=== PATIENT | female | born 1935 | race Caucasian/White ===

== ENCOUNTER 2022-12-08 11:16 | Observation (INO) | payer OTHER ==
--- OUTSIDE RECORDS SUMMARY | 2022-12-08 11:19 | XMS REPORT | Continuity of Care Document ---
:1935 Author Organization [facility] t Address [address] [place] [address] Care Team Providers Name Role Phone MIKHAIL Attending Clinician Unavailable oRbert Cerrato Attending Clinician [phone] JUSTIN DELEON Attending Clinician Unavailable Justin Brunson Attending Clinician MIKHAIL Admitting Clinician Unavailable Payers Payer Name Policy Type Policy Number Effective Date Expiration Date S anne-marie [facility] [id number] (MEDICARE REPLACEMENT/[place] GE - PPO) [facility] [id number] 2021 [facility] 00:00:00 PPO Problems Condition Condition Condition Status Onset Resolution Last Treating Co mments Source Name Details Category Date Date Treatment Clinician Date Acute Acute Problem Active Fellows bronchitis Bronchitis 03-14 Co mmuni 00:00: [facility] Impairment Impairment Problem Active 2020-11 S weeny of balance of Balance 11-20 Co mmuni 00:00: [facility] At risk At Risk Problem Active 2020-11 Fellows for falls for Falls 11-20 Comm uni 00:: [facility] Hypothyroi Hypothyroi Problem Active 2019- S weeny dism dism - Communi 00:: [facility] Hypertensi Hypertensi Problem Active 2019-0 S weeny ve ve -17 Communi disorder Disorder 00:00: [facility] Asthma Asthma Problem Active 2019- Fellows -17 Communi 00:00: [facility] 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 -17 Commun i 00:00: [facility] No known No known Disease Unive rs active active ity of problems problems [facility] Allergies, Adverse Reactions, Alerts Allergy Allergy Status Severity Reaction(s) Onset Inactive Treating Comm ents Source Name Type Date Date Clinician NO KNOWN Drug Active Univers ALLERGIE Class [facility] Melatoni Allergy Active Confusion Swe[facility] Social History Social Habit Start Date Stop Date Quantity Comments Source Exposure to Not sure [facility] SARS-CoV-2 (event) Medica l Branch Tobacco use and 2021-03-09 2021-03-09 Never used [facility] exposure 00:00:00 00:00:00 Medical Branch Sex Ass[birth year] At [birth year] [facility] 00:00:00 00:00:00 Medical Branch Smoking Status Start Date Stop Date Source Never smoker [facility] Medications Ordered Filled Start Stop Current Ordering Indication Dosage Frequency Signature Comments Components Source Medication Medication Date Date Medication? Clinician (SIG) Name Name methylPREDN 2019-0 Yes [id number] [phone] mouth ity of (MEDROL, 00:00: SEE-INSTRU Hany as HU,) 4 mg 00 CTIONS. Medica l tablets follow Branch package directions methylPREDN 2019-0 Yes [id number] [phone] mouth ity of (MEDROL, 00:00: SEE-INSTRU Hany as HU,) 4 mg 00 CTIONS. Medica l tablets follow Branch package directions methylPREDN 2019-0 Yes [id number] [phone] mouth ity of (MEDROL, 00:00: SEE-INSTRU Hany as HU,) 4 mg 00 CTIONS. Medica l tablets follow Branch package directions methylPREDN 2017-0 Yes 84mg Take 21 Uni vers ISolone 7-27 tablets by ity of (MEDROL, 00:00: mouth [place] HU,) 4 mg 00 SEE-INSTRU Med ical tablets CTIONS. Branch follow package directions methylPREDN 2017-0 Yes 84mg Take 21 Uni vers ISolone 7-27 tablets by ity of (MEDROL, 00:00: mouth [place] HU,) 4 mg 00 SEE-INSTRU Med ical tablets CTIONS. Branch follow package directions methylPREDN 2017-0 Yes 84mg Take 21 Uni vers ISolone 7-27 tablets by ity of (MEDROL, 00:00: mouth [place] HU,) 4 mg 00 SEE-INSTRU Med ical tablets CTIONS. Branch follow package directions gabapentin Yes TAKE ONE Uni vers 300 mg 6-27 CAPSULE BY ity of capsule 00:00: MOUTH AT [place] [address] BEDTIME Medical Branch montelukast Yes TAKE 1 Univ ers 10 mg 6-27 TABLET BY ity of tablet 00:00: MOUTH AT [place] [address] BEDTIME Medical WITH A Branch FULL GLASS OF WATER benzonatate Yes TAKE ONE Un jefferson 100 mg 6-27 CAPSULE BY ity of capsule 00:00: MOUTH [place] [address] EVERY 6 Medical HOURS AND Branch 2 CAPSULES BY MOUTH AT BEDTIME NEEDED FOR COUGH gabapentin Yes TAKE ONE Uni vers 300 mg 6-27 CAPSULE BY ity of capsule 00:00: MOUTH AT [place] [address] BEDTIME Medical Branch montelukast Yes TAKE 1 Univ ers 10 mg 6-27 TABLET BY ity of tablet 00:00: MOUTH AT [place] [address] BEDTIME Medical WITH A Branch FULL GLASS OF WATER benzonatate Yes TAKE ONE Un jefferson 100 mg 6-27 CAPSULE BY ity of capsule 00:00: MOUTH [place] [address] EVERY 6 Medical HOURS AND Branch 2 CAPSULES BY MOUTH AT BEDTIME NEEDED FOR COUGH gabapentin Yes TAKE ONE Uni vers 300 mg 6-27 CAPSULE BY ity of capsule 00:00: [facility] AT [place] [address] [facility] montelukast Yes TAKE 1 Univ ers 10 mg 6-27 TABLET BY ity of tablet 00:00: MOUTH AT [place] [address] BEDTIME Medical WITH A Branch FULL GLASS OF WATER benzonatate Yes TAKE ONE Un jefferson 100 mg 6-27 CAPSULE BY ity of capsule 00:00: MOUTH [place] [address] EVERY 6 Medical HOURS AND Branch 2 CAPSULES BY MOUTH AT BEDTIME NEEDED FOR COUGH amlodipine- Yes TAKE 1 Univ ers benazepril 5-26 TABLET BY ity of 10-20 mg 00:00: MOUTH ONCE Hany as per capsule 00 DAILY Medical Branch amlodipine- Yes TAKE 1 Univ ers benazepril 5-26 TABLET BY ity of 10-20 mg 00:00: MOUTH ONCE Hany as per capsule 00 DAILY Medical Branch amlodipine- Yes TAKE 1 Univ ers benazepril 5-26 TABLET BY ity of 10-20 mg 00:00: MOUTH ONCE Hany as per capsule 00 DAILY Medical Branch amlodipine amlodipine No amlodipine Fellows 10 10 10 Communi mg-benazepr mg-benazepr mg-benazep ty il 20 mg il 20 mg ril 20 mg Ho spita capsule capsule capsule l TAKE 1 TAKE 1 TAKE 1 Clinics CAPSULE BY CAPSULE BY CAPSULE BY MOUTH EVERY MOUTH EVERY MOUTH DAY DAY EVERY DAY azithromyci azithromyci No azithromyc Fellows n 250 mg n 250 mg in 250 mg Co mmuni tablet TAKE tablet TAKE tablet ty 2 TABLETS 2 TABLETS TAKE 2 [facility] (500 MG) BY (500 MG) BY TABLETS l ORAL ROUTE ORAL ROUTE (500 MG) Clinics ONCE DAILY ONCE DAILY BY ORAL FOR 1 DAY FOR 1 DAY ROUTE ONCE THEN 1 THEN 1 DAILY FOR TABLET (250 TABLET (250 1 DAY THEN MG) BY ORAL MG) BY ORAL 1 TABLET ROUTE ONCE ROUTE ONCE (250 MG) DAILY FOR 4 DAILY FOR 4 BY ORAL DAYS DAYS ROUTE ONCE DAILY FOR 4 DAYS dexamethaso dexamethaso No 10mg dexamethas Fellows ne sodium ne sodium one sodium Communi phosphate phosphate phosphate ty 10 mg/mL 10 mg/mL 10 mg/mL [facility] injection injection injection l solution solution solution Cli nics Take 10 mg Take 10 mg Take 10 mg by by by injection injection injection route. route. route. Guaiatussin Guaiatussin No Guaiatussi [facility]s AC 10 AC 10 n AC 10 Communi mg-100 mg/5 mg-100 mg/5 mg-100 ty mL oral mL oral mg/5 mL Hospit a liquid TAKE liquid TAKE oral l 10 ML EVERY 10 ML EVERY liquid Clinics 4-6 HOURS 4-6 HOURS TAKE 10 ML BY ORAL BY ORAL EVERY 4-6 ROUTE. ROUTE. HOURS BY ORAL ROUTE. Kenalog 40 Kenalog 40 No 40mg Kenalog 40 Fellows mg/mL mg/mL mg/mL Communi suspension suspension suspension ty for for for Hospita injection injection injection l Take 40 mg Take 40 mg Take 40 mg Clinics by by by injection injection injection route. route. route. montelukast montelukast No montelukas [facility] 10 mg 10 mg t 10 mg Communi tablet TAKE tablet TAKE tablet ty 1 TABLET BY 1 TABLET BY TAKE 1 Hospita MOUTH EVERY MOUTH EVERY TABLET BY l DAY DAY MOUTH Clinics EVERY DAY amlodipine amlodipine No amlodipine Fellows 10 10 10 Communi mg-benazepr mg-benazepr mg-benazep ty il 20 mg il 20 mg ril 20 mg Ho spita capsule capsule capsule l TAKE 1 TAKE 1 TAKE 1 Clinics CAPSULE BY CAPSULE BY CAPSULE BY MOUTH EVERY MOUTH EVERY MOUTH DAY DAY EVERY DAY azithromyci azithromyci No azithromyc Fellows n 250 mg n 250 mg in 250 mg Co mmuni tablet TAKE tablet TAKE tablet ty 2 TABLETS 2 TABLETS TAKE 2 [facility] (500 MG) BY (500 MG) BY TABLETS l ORAL ROUTE ORAL ROUTE (500 MG) Clinics ONCE DAILY ONCE DAILY BY ORAL FOR 1 DAY FOR 1 DAY ROUTE ONCE THEN 1 THEN 1 DAILY FOR TABLET (250 TABLET (250 1 DAY THEN MG) BY ORAL MG) BY ORAL 1 TABLET ROUTE ONCE ROUTE ONCE (250 MG) DAILY FOR 4 DAILY FOR 4 BY ORAL DAYS DAYS ROUTE ONCE DAILY FOR 4 DAYS dexamethaso dexamethaso No 10mg dexamethas [facility] ne sodium ne sodium one sodium Communi phosphate phosphate phosphate ty 10 mg/mL 10 mg/mL 10 mg/mL [facility] injection injection injection l solution solution solution Cli nics Take 10 mg Take 10 mg Take 10 mg by by by injection injection injection route. route. route. Guaiatussin Guaiatussin No Guaiatussi [facility] AC 10 AC 10 n AC 10 Communi mg-100 mg/5 mg-100 mg/5 mg-100 ty mL oral mL oral mg/5 mL Hospit a liquid TAKE liquid TAKE oral l 10 ML EVERY 10 ML EVERY liquid Clinics 4-6 HOURS 4-6 HOURS TAKE 10 ML BY ORAL BY ORAL EVERY 4-6 ROUTE. ROUTE. HOURS BY ORAL ROUTE. Kenalog 40 Kenalog 40 No 40mg Kenalog 40 Fellows mg/mL mg/mL mg/mL Communi suspension suspension suspension ty for for for Hospita injection injection injection l Take 40 mg Take 40 mg Take 40 mg Clinics by by by injection injection injection route. route. route. montelukast montelukast No montelukas [facility] 10 mg 10 mg t 10 mg Communi tablet TAKE tablet TAKE tablet ty 1 TABLET BY 1 TABLET BY TAKE 1 Hospita MOUTH EVERY MOUTH EVERY TABLET BY l DAY DAY MOUTH Clinics EVERY DAY amlodipine amlodipine No amlodipine [facility] 10 10 10 Communi mg-benazepr mg-benazepr mg-benazep ty il 20 mg il 20 mg ril 20 mg Ho spita capsule capsule capsule l TAKE 1 TAKE 1 TAKE 1 Clinics CAPSULE BY CAPSULE BY CAPSULE BY MOUTH EVERY MOUTH EVERY MOUTH DAY DAY EVERY DAY azithromyci azithromyci No azithromyc [facility] n 250 mg n 250 mg in 250 mg Co m[facility]i tablet TAKE tablet TAKE tablet ty 2 TABLETS 2 TABLETS TAKE 2 [facility] (500 MG) BY (500 MG) BY TABLETS l ORAL ROUTE ORAL ROUTE (500 MG) Clinics ONCE DAILY ONCE DAILY BY ORAL FOR 1 DAY FOR 1 DAY ROUTE ONCE THEN 1 THEN 1 DAILY FOR TABLET (250 TABLET (250 1 DAY THEN MG) BY ORAL MG) BY ORAL 1 TABLET ROUTE ONCE ROUTE ONCE (250 MG) DAILY FOR 4 DAILY FOR 4 BY ORAL DAYS DAYS ROUTE ONCE DAILY FOR 4 DAYS dexamethaso dexamethaso No 10mg dexamethas [facility] ne sodium ne sodium one sodium Communi phosphate phosphate phosphate ty 10 mg/mL 10 mg/mL 10 mg/mL [facility] injection injection injection l solution solution solution Cli nics Take 10 mg Take 10 mg Take 10 mg by by by injection injection injection route. route. route. Guaiatussin Guaiatussin No Guaiatussi [facility] AC 10 AC 10 n AC 10 Communi mg-100 mg/5 mg-100 mg/5 mg-100 ty mL oral mL oral mg/5 mL Hospit a liquid TAKE liquid TAKE oral l 10 ML EVERY 10 ML EVERY liquid Clinics 4-6 HOURS 4-6 HOURS TAKE 10 ML BY ORAL BY ORAL EVERY 4-6 ROUTE. ROUTE. HOURS BY ORAL ROUTE. Kenalog 40 Kenalog 40 No 40mg Kenalog 40 Fellows mg/mL mg/mL mg/mL Communi suspension suspension suspension ty for for for Hospita injection injection injection l Take 40 mg Take 40 mg Take 40 mg Clinics by by by injection injection injection route. route. route. montelukast montelukast No montelukas [facility] 10 mg 10 mg t 10 mg Communi tablet TAKE tablet TAKE tablet ty 1 TABLET BY 1 TABLET BY TAKE 1 Hospita MOUTH EVERY MOUTH EVERY TABLET BY l DAY DAY MOUTH Clinics EVERY DAY amlodipine amlodipine No amlodipine [facility] 10 10 10 Communi mg-benazepr mg-benazepr mg-benazep ty il 20 mg il 20 mg ril 20 mg [facility] spita capsule capsule capsule l TAKE 1 TAKE 1 TAKE 1 Clinics CAPSULE BY CAPSULE BY CAPSULE BY MOUTH EVERY MOUTH EVERY MOUTH DAY DAY EVERY DAY levothyroxi levothyroxi No levothyrox [facility] ne 50 mcg ne 50 mcg ine 50 mcg Communi tablet TAKE tablet TAKE tablet ty 1 TABLET BY 1 TABLET BY TAKE 1 Hospita MOUTH EVERY MOUTH EVERY TABLET BY l DAY. STOP DAY. STOP MOUTH Clin ics 25 MCG DOSE 25 MCG DOSE EVERY DAY. STOP 25 MCG DOSE montelukast montelukast No montelukas [facility] 10 mg 10 mg t 10 mg Communi tablet TAKE tablet TAKE tablet ty 1 TABLET BY 1 TABLET BY TAKE 1 Hospita MOUTH EVERY MOUTH EVERY TABLET BY l DAY DAY MOUTH Clinics EVERY DAY sertraline sertraline No 1 Q1D sertraline [facility] 25 mg 25 mg 25 mg Communi tablet Take tablet Take tablet ty 1 tablet 1 tablet Take 1 Hospi ta every day every day tablet l by oral by oral every day Clin ics route. route. by oral route. amlodipine amlodipine No amlodipine [facility] 10 10 10 Communi mg-benazepr mg-benazepr mg-benazep ty il 20 mg il 20 mg ril 20 mg Ho spita capsule capsule capsule l TAKE 1 TAKE 1 TAKE 1 Clinics CAPSULE BY CAPSULE BY CAPSULE BY MOUTH EVERY MOUTH EVERY MOUTH DAY DAY EVERY DAY levothyroxi levothyroxi No levothyrox [facility] ne 25 mcg ne 25 mcg ine 25 mcg Communi tablet Take tablet Take tablet ty 1 tablet 1 tablet Take 1 Hospi ta daily by daily by tablet l mouth mouth daily by Clinics mouth montelukast montelukast No montelukas [facility] 10 mg 10 mg t 10 mg Communi tablet TAKE tablet TAKE tablet ty 1 TABLET BY 1 TABLET BY TAKE 1 Hospita MOUTH EVERY MOUTH EVERY TABLET BY l DAY DAY MOUTH Clinics EVERY DAY amlodipine amlodipine No amlodipine [facility] 10 10 10 Communi mg-benazepr mg-benazepr mg-benazep ty il 20 mg il 20 mg ril 20 mg Ho spita capsule capsule capsule l TAKE 1 TAKE 1 TAKE 1 Clinics CAPSULE BY CAPSULE BY CAPSULE BY MOUTH ONCE MOUTH ONCE MOUTH ONCE DAILY DAILY DAILY azithromyci azithromyci No azithromyc [facility] n 250 mg n 250 mg in 250 mg Co m[facility]i tablet TAKE tablet TAKE tablet ty 2 TABLETS 2 TABLETS TAKE 2 [facility] BY MOUTH BY MOUTH TABLETS BY l TODAY, THEN TODAY, THEN MOUTH Clinics TAKE 1 TAKE 1 TODAY, TABLET TABLET THEN TAKE DAILY FOR 4 DAILY FOR 4 1 TABLET DAYS DAYS DAILY FOR 4 DAYS dexamethaso dexamethaso No 10mg Q1D dexamethas [facility] ne sodium ne sodium one sodium Communi phosphate phosphate phosphate ty (PF) 10 (PF) 10 (PF) 10 Hospit a mg/mL mg/mL mg/mL l injection injection injection Clinics solution solution solution Take 10 mg Take 10 mg Take 10 mg every day every day every day by by by injection injection injection route. route. route. Fluzone Fluzone No Fluzone [facility] High-Dose High-Dose High-Dose Communi Quad Quad Quad ty Hospit a (PF) 240 (PF) 240 (PF) 240 l mcg/0.7 mL mcg/0.7 mL mcg/0.7 mL Clinics IM syringe IM syringe IM syringe PHARMACIST PHARMACIST PHARMACIST ADMINISTERE ADMINISTERE ADMINISTER D D ED IMMUNIZATIO IMMUNIZATIO IMMUNIZATI N N ON ADMINISTERE ADMINISTERE ADMINISTER D AT TIME D AT TIME ED AT TIME OF OF OF DISPENSING DISPENSING DISPENSING Kenalog 40 Kenalog 40 No 40mg Q1D Kenalog 40 Fellows mg/mL mg/mL mg/mL Communi suspension suspension suspension ty for for for Hospita injection injection injection l Take 40 mg Take 40 mg Take 40 mg Clinics every day every day every day by by by injection injection injection route. route. route. levothyroxi levothyroxi No levothyrox [facility] ne 25 mcg ne 25 mcg ine 25 mcg Communi tablet TAKE tablet TAKE tablet ty 1 TABLET BY 1 TABLET BY TAKE 1 Hospita MOUTH EVERY MOUTH EVERY TABLET BY l DAY DAY MOUTH Clinics EVERY DAY montelukast montelukast No montelukas [facility] 10 mg 10 mg t 10 mg Communi tablet TAKE tablet TAKE tablet ty 1 TABLET BY 1 TABLET BY TAKE 1 Hospita MOUTH ONCE MOUTH ONCE TABLET BY l DAILY DAILY MOUTH ONCE Clinics DAILY Mucinex 1 Mucinex 1 No Mucinex 1 [facility] PO BID PO BID PO BID Communi ty Hospita l Clinics Prevnar 13 Prevnar 13 No Prevnar 13 Fellows (PF) 0.5 mL (PF) 0.5 mL (PF) 0.5 Communi intramuscul intramuscul mL t y ar syringe ar syringe intramuscu Hospita PHARMACIST PHARMACIST magali patel ADMINISTERE ADMINISTERE syringe Clinics D D PHARMACIST IMMUNIZATIO IMMUNIZATIO ADMINISTER N N ED ADMINISTERE ADMINISTERE IMMUNIZATI D AT TIME D AT TIME ON OF OF ADMINISTER DISPENSING DISPENSING ED AT TIME OF DISPENSING amlodipine amlodipine No 1capsul Q1D amlodipine [facility] 5 5 e(s) 5 Communi mg-benazepr mg-benazepr mg-benazep ty il 20 mg il 20 mg ril 20 mg [facility] spita capsule capsule capsule l Take 1 Take 1 Take 1 Clinics capsule capsule capsule every day every day every day by oral by oral by oral route. route. route. montelukast montelukast No montelukas [facility] 10 mg 10 mg t 10 mg Communi tablet TAKE tablet TAKE tablet ty 1 TABLET BY 1 TABLET BY TAKE 1 Hospita MOUTH ONCE MOUTH ONCE TABLET BY l DAILY DAILY MOUTH ONCE Clinics DAILY amlodipine amlodipine No amlodipine [facility] 10 10 10 Communi mg-benazepr mg-benazepr mg-benazep ty il 20 mg il 20 mg ril 20 mg Ho spita capsule capsule capsule l TAKE 1 TAKE 1 TAKE 1 Clinics CAPSULE BY CAPSULE BY CAPSULE BY MOUTH EVERY MOUTH EVERY MOUTH DAY DAY EVERY DAY codeine 10 codeine 10 No 10mL Q5H codeine 10 [facility] mg-guaifene mg-guaifene mg-guaifen Communi sin 100 sin 100 esin 100 ty mg/5 mL mg/5 mL mg/5 mL Hospit a oral liquid oral liquid oral l Take 10 mL Take 10 mL liquid C linics every 4-6 every 4-6 Take 10 mL hours by hours by every 4-6 oral route. oral route. hours by oral route. montelukast montelukast No montelukas [facility] 10 mg 10 mg t 10 mg Communi tablet TAKE tablet TAKE tablet ty 1 TABLET BY 1 TABLET BY TAKE 1 Hospita MOUTH EVERY MOUTH EVERY TABLET BY l DAY DAY MOUTH Clinics EVERY DAY Immunizations Ordered Immunization Filled Immunization Date Status Commen ts Source Name Name Influenza, Influenza, 2021-09-13 Completed [facility] injectable, MDCK, injectable, MDCK, 10:02:59 [facility] Influenza, Influenza, 2021-09-13 Completed [facility] injectable, MDCK, injectable, MDCK, 10:02:59 [facility] Influenza, Influenza, 2021-09-13 Completed [facility] injectable, MDCK, injectable, MDCK, 10:02:59 [facility] preservative free, preservative free, [facility] Influenza, Influenza, 2021-09-13 Completed [facility] injectable, MDCK, injectable, MDCK, 10:02:59 [facility] Influenza, Influenza, 2021-09-13 Completed [facility] injectable, MDCK, injectable, MDCK, 10:02:59 [facility] Influenza, Influenza, 2021-09-13 Completed [facility] injectable, MDCK, injectable, MDCK, 10:02:59 [facility] Influenza, Influenza, 2021-09-13 Completed [facility] injectable, MDCK, injectable, MDCK, 10:02:59 [facility] Influenza, Influenza, 2021-09-13 Completed [facility] injectable, MDCK, injectable, MDCK, 10:02:59 [facility] pneumococcal pneumococcal 2019-08-21 Completed [facility] polysaccharide PPV23 polysaccharide PPV23 00:00:00 [facility] influenza, influenza, 2019-08-21 Completed [facility] injectable, injectable, 00:00:00 [facility] pneumococcal pneumococcal 2019-08-21 Completed [facility] polysaccharide PPV23 polysaccharide PPV23 00:00:00 [facility] influenza, influenza, 2019-08-21 Completed [facility] injectable, injectable, 00:00:00 [facility] pneumococcal pneumococcal 2019-08-21 Completed [facility] polysaccharide PPV23 polysaccharide PPV23 00:00:00 [facility] influenza, influenza, 2019-08-21 Completed [facility] injectable, injectable, 00:00:00 [facility] pneumococcal pneumococcal 2019-08-21 Completed [facility] polysaccharide PPV23 polysaccharide PPV23 00:00:00 [facility] influenza, influenza, 2019-08-21 Completed [facility] injectable, injectable, 00:00:00 [facility] pneumococcal pneumococcal 2019-08-21 Completed [facility] polysaccharide PPV23 polysaccharide PPV23 00:00:00 [facility] influenza, influenza, 2019-08-21 Completed [facility] injectable, injectable, 00:00:00 [facility] pneumococcal pneumococcal 2019-08-21 Completed [facility] polysaccharide PPV23 polysaccharide PPV23 00:00:00 [facility] influenza, influenza, 2019-08-21 Completed [facility] injectable, injectable, 00:00:00 [facility] pneumococcal pneumococcal 2019-08-21 Completed [facility] polysaccharide PPV23 polysaccharide PPV23 00:00:00 [facility] influenza, influenza, 2019-08-21 Completed [facility] injectable, injectable, 00:00:00 [facility] pneumococcal pneumococcal 2019-08-21 Completed [facility] polysaccharide PPV23 polysaccharide PPV23 00:00:00 [facility] influenza, influenza, 2019-08-21 Completed [facility] injectable, injectable, 00:00:00 [facility] Vital Signs Vital Name Observation Time Observation Value Comments Source BP Diastolic 2022-12-06 00:00:00 70 mm[Hg] [facility] s Height 2022-12-06 00:00:00 65 [in_i] [facility] BMI (Body Mass 2022-12-06 00:00:00 21 kg/m2 [facility] BP Systolic 2022-12-06 00:00:00 116 mm[Hg] [facility] s Body Weight 2022-12-06 00:00:00 2016 [oz_av] [facility] s BP Diastolic 2022-08-05 00:00:00 68 mm[Hg] [facility] s Height 2022-08-05 00:00:00 65 [in_i] [facility] s BMI (Body Mass 2022-08-05 00:00:00 24.1 kg/m2 [facility]) [facility] s BP Systolic 2022-08-05 00:00:00 118 mm[Hg] [facility] s Body Weight 2022-08-05 00:00:00 2320 [oz_av] [facility] s BP Diastolic 2022-03-14 00:00:00 68 mm[Hg] [facility] s Height 2022-03-14 00:00:00 65 [in_i] [facility] s BMI (Body Mass 2022-03-14 00:00:00 24.3 kg/m2 [facility]) [facility] s BP Systolic 2022-03-14 00:00:00 142 mm[Hg] [facility] s Body Weight 2022-03-14 00:00:00 2336 [oz_av] [facility] s BP Diastolic 2022-01-10 00:00:00 72 mm[Hg] [facility] s Height 2022-01-10 00:00:00 65 [in_i] [facility] s BMI (Body Mass 2022-01-10 00:00:00 23.1 kg/m2 [facility]) [facility] s BP Systolic 2022-01-10 00:00:00 116 mm[Hg] [facility] s Body Weight 2022-01-10 00:00:00 2224 [oz_av] [facility] s BP Diastolic 2021-09-20 00:00:00 58 mm[Hg] [facility] s Height 2021-09-20 00:00:00 65 [in_i] [facility] s BMI (Body Mass 2021-09-20 00:00:00 24.1 kg/m2 [facility]) [facility] s BP Systolic 2021-09-20 00:00:00 92 mm[Hg] [facility] s Body Weight 2021-09-20 00:00:00 2320 [oz_av] [facility] s Systolic blood 2021-03-09 14:03:00 142 mm[Hg] [facility] Diastolic blood 2021-03-09 14:03:00 81 mm[facility]Hg[facility] 2021-[facility]-09 14:03:00 78 /min [facility] Body height 2021-03-09 14:03:00 165.1 cm [facility] Body weight 2021-03-09 14:03:00 63.504 kg [facility] BMI 2021-03-09 14:03:00 23.30 kg/m2 [facility] Procedures Procedure Date / Time Performed Performing Clinician Sourosei e XR FOOT <3 VW RIGHT 2021-03-09 14:11:04 Justin Deleon [facility] Knee Surgery [facility] Ligation of Fallopian [facility] Plan of Care Planned Activity Planned Date Details Comments Source Diagnostic Test 2022-08-05 TSH + free T4, Fellows Com munity Pending 00:00:00 serum [code = TSH Hospital C linics + free T4, serum] Diagnostic Test 2022-08-05 BMP, serum or Fellows Comm unity Pending 00:00:00 plasma [code = Hospital Clin ics BMP, serum or plasma] Future Appointment 2023-01-06 [facility] [address] [facility] [place] [address] Encounters Start End Encounter Admission Attending Care Care Encounter Source Date/Time Date/Time Type Type Clinicians Facility Department ID 2022-12-06 2022-12-06 Robert [facility] - Fellows 24 Fellows 00:00:00 00:00:00 [facility] [address] [facility] a [facility] [address], HOSPITAL [facility] s [place], [place] CL[place]IC, [address] MARGARITA , Ph. 2022-09-07 2022-09-07 Outpatient ERUMAIR_R [facility] [id number] Fellows 00:00:00 00:00:00 [facility] 2022-09-07 2022-09-07 Outpatient ERCHRISTIANNEON_R [facility] [id number] Fellows 00:00:00 00:00:00 126 [facility] 2022-08-05 2022-08-05 Outpatient ERICKSON_R [facility] [id number] - Fellows 00:00:00 00:00:00 923 Commun i ty Hosp[facility] Clinics 2022-08-05 2022-08-05 Robert [facility] [place] - Fellows Fellows 00:00:00 00:00:00 [facility] DO: [address] [facility], HOSPITAL [place], [place] CLINIC, [address] MARGARITA , Ph. 2022-03-14 2022-03-14 Outpatient ERICKSON_R [facility] [id number] - Fellows 12:17:00 12:17:00 502 Commun i ty Hospita [facility] 2022-03-14 2022-03-14 Robert [facility] [place] - Fellows Fellows 00:00:00 00:00:00 [facility] DO: [address] [facility], HOSPITAL [place], [place]IC, [address] MARGARITA , Ph. [phone] 2022-03-14 2022-03-14 Outpatient Margarita [facility] [id number] 00:00:00 00:00:00 Robert [id number] Esteban [id number] 2022-03-14 2022-03-14 Outpatient Margarita [facility] [id number] 00:00:00 00:00:00 Robert [id number] Esteban [id number] 2022-03-14 2022-03-14 Outpatient Cerrato, [facility] [id number] 00:00:00 00:00:00 Robert [id number] Esteban [id number] 2022-01-10 2022-01-10 Outpatient ERICKSON_R [facility] [id number] Fellows 03:48:00 03:48:00 228 Commun i ty Hospita [facility] Clinics 2022-01-10 2022-01-10 Outpatient Margarita [facility] [id number] 00:00:00 00:00:00 Robert [id number] Esteban [id number] 2022-01-10 2022-01-10 Robert [facility] [place] - Fellows Fellows 00:00:00 00:00:00 [facility] DO: [address] [facility], H[facility], [address] MARGARITA , Ph. [phone] 2021-09-20 2021-09-20 Outpatient ERICKSON_R [facility] [id number] Fellows 10:38:00 10:38:00 108 Commun i ty Hospita l [facility] 2021-09-20 2021-09-20 Outpatient Margarita [facility] [id number] 00:00:00 00:00:00 Robert [id number] Esteban [id number] 2021-09-20 2021-09-20 Robert [facility] [place] - Fellows [id number] Fellows 00:00:00 00:00:00 [facility] DO: [address] [facility], [address] MARGARITA , Ph. 2021-09-13 2021-09-13 Outpatient ERICKSON_R [facility] [id number] Fellows 12:00:00 12:00:00 101 Commun i ty Hospita l Clinics 2021-09-13 2021-09-13 Outpatient Margarita [facility] [id number] 00:00:00 00:00:00 Robert [id number] Esteban [id number] 2021-09-13 [facility] [place] - Fellows [id number] Fellows 00:00:00 00:00:00 [facility] [address] [facility] [address], HOSPITAL Clinic s [place], [place] CLINIC, [address] MARGARITA , Ph. [phone] 2021-04-01 2021-04-01 Outpatient Chaparro [facility] [id number] [facility] 10:00:00 10:00:00 [facility] 2021-03-30 2021-03-30 [facility] [id number] [facility] 09:00:00 09:00:00 [facility] 2021-03-09 2021-03-09 [facility] [id number] Univers 09:11:03 23:59:00 Encounter [facility] [id number] ity of Surgical [id number] Hany as Specialti [phone] Nd dical es 809 [facility] 2021-03-09 2021-03-09 Office [facility] [id number] Univers 08:58:09 09:13:09 Visit [facility] [id number] it y of Surgical [id number] Hany as Specialti [phone] Me dical es 198 [facility] 2021-03-09 2021-03-09 Outpatient [facility] [id number] Univers 09:00:00 09:00:00 [facility] 2020-09-16 2020-09-16 Outpatient MARGARITA_R [facility] [id number] Fellows 06:37:00 06:37:00 104 Commun i ty Hospita l Clinics Results This patient has no known results.
[2022-12-08 12:00] LABS: Urine Blood Trace-intact (Negative); Urine Glucose Negative (Negative); Urine Protein 1+ (Negative); Urine Specific Gravity 1.015 (1.005-1.030)
[2022-12-08] MEDS ORDERED: NA CHLORIDE 0.9% 1,000 ML ONE ×2 (12:05→17:33)
[2022-12-08 12:15] LABS: Specific Gravity 1.014 (1.005-1.030); Urine Bacteria <20 /HPF (<20); Urine Bilirubin NEGATIVE (Negative); Urine Blood Negative (Negative); Urine Clarity Clear (Clear); Urine Color Light-Yellow (Yellow); Urine Glucose NEGATIVE (Negative); Urine Mucus Slight /HPF (None Seen); Urine Protein TRACE (Negative); Urine RBC <5 /HPF (None Seen); Urine Urobilinogen Normal (Normal); Urine pH 6.5 (5.0-7.0)
[2022-12-08 13:24] LABS: Albumin 3.7 g/dL (3.4-5.0); Potassium 4.6 mmol/L (3.5-5.1)
[2022-12-08 13:30] LABS: Bilirubin Direct 0.3 mg/dL (0-0.2); Bilirubin Total 0.8 mg/dL (0.2-1.0); Protein, Total 7.4 g/dL (6.4-8.2)
[2022-12-08 13:32] LABS: Troponin High Sensitivity 152.9 pg/mL (<58.9)
[2022-12-08 13:35] LABS: Absolute Lymphocytes (CBC) 1.5 K/uL (0.7-4.9); Hematocrit 35.9 % (36.0-45.0); Lymphocytes % 18.9 % (15.3-44.8); MCV 88.7 fL (80-100); RBC Red Blood Cell Count 4.05 M/uL (3.86-4.86)
--- NOTE | 2022-12-08 14:44 | ER ---
Nurse's Notes [facility] Name: Marjan Ortiz Age: 87 yrs Sex: Female : 1935 Arrival Date: 12/08/2022 Time: 11:21 Bed 3 Private MD: Diagnosis: Subsequent non-ST elevation (NSTEMI) myocardial infarction;Muscle weakness (generalized) Presentation: 12/08 11:21 Chief complaint: EMS states: client felt she had a stroke last Monday. stated she went kc6 to the doctor on Monday and was diagnosed with depression and prescribed Zoloft. stated she has been unable to eat in a week, and has generalized weakness. BGL 160. Coronavirus screen: Vaccine status: Patient reports being unvaccinated. At this time, the client does not indicate any symptoms associated with coronavirus-19. Ebola Screen: No symptoms or risks identified at this time. Initial Sepsis Screen: Does the patient meet any 2 criteria? No. Patient's initial sepsis screen is negative. Does the patient have a suspected source of infection? No. Patient's initial sepsis screen is negative. Risk Assessment: Do you want to hurt yourself or someone else? Patient reports no desire to harm self or others. Onset of symptoms was December 02, 2022. 11:21 Method Of Arrival: EMS: [facility] 11:21 Acuity: STEPHANIE 3 kc6 Triage Assessment: 11:24 General: Appears in no apparent distress. comfortable, Behavior is calm, cooperative, kc6 appropriate for age. Pain: Denies pain. EENT: No signs and/or symptoms were reported regarding the EENT system. Neuro: Feliciano Agitation-Sedation Scale (RASS): 0 - Alert and Calm Level of Consciousness is awake, alert, obeys commands, Oriented to person, place, time, situation, Appropriate for age. Cardiovascular: Heart tones S1 S2 present Capillary refill < 3 seconds. Respiratory: Airway is patent Trachea midline Respiratory effort is even, unlabored, Respiratory pattern is regular, symmetrical, Breath sounds are clear bilaterally. GI: No signs and/or symptoms were reported involving the gastrointestinal system. : Reports urinary frequency. Derm: No signs and/or symptoms reported regarding the dermatologic system. Skin is intact, Skin is pink, warm \T\ dry. Musculoskeletal: No signs and/or symptoms reported regarding the musculoskeletal system. Circulation, motion, and sensation intact. Capillary refill < 3 seconds, Range of motion: intact in all extremities. Historical: - Allergies: 11:24 No Known Allergies; kc6 - Home Meds: 11:24 Zoloft Oral [Active]; levothyroxine oral [Active]; kc6 - PMHx: 11:24 Hypertensive disorder; Hypothyroidism; Depressive disorder; 6 - PSHx: 11:24 right knee; kc6 - Immunization history:: Client reports having NOT received the Covid vaccine. Flu vaccine is not up to date. - Social history:: Smoking status: Patient denies any tobacco usage or history of. Screenin:[address] [facility] ED Fall Risk Assessment (Adult) History of falling in the last 3 months, kc6 including since admission Yes- single mechanical fall (1 pt) Confusion or Disorientation No (0 pts) Intoxicated or Sedated No (0 pts) Impaired Gait No (0 pts) Mobility Assist Device Used No (0 pt) Altered Elimination No (0 pt) Score/Fall Risk Level 0 - 2 = Low Risk Oriented to surroundings, Maintained a safe environment, Educated pt \T\ family on fall prevention, incl call for assistance when getting out of bed, Assessed \T\ reinforced patient's understanding of fall precautions, Hourly rounding (assess needs \T\ fall precautionary measures) done. Abuse screen: Denies threats or abuse. Denies injuries from another. Nutritional screening: No deficits noted. Tuberculosis screening: No symptoms or risk factors identified. Assessment: 11:30 Reassessment: please see triage assessment. [facility] 12:30 Reassessment: Patient appears in no apparent distress at this time. No changes from [facility] previously documented assessment. Patient and/or family updated on plan of care and expected duration. Pain level reassessed. Patient is alert, oriented x 3, equal unlabored respirations, skin warm/dry/pink. Patient denies pain at this time. 13:30 Reassessment: Patient appears in no apparent distress at this time. No changes from [facility] previously documented assessment. Patient and/or family updated on plan of care and expected duration. Pain level reassessed. Patient is alert, oriented x 3, equal unlabored respirations, skin warm/dry/pink. Patient denies pain at this time. 14:30 Reassessment: Patient appears in no apparent distress at this time. No changes from kc6 previously documented assessment. Patient and/or family updated on plan of care and expected duration. Pain level reassessed. Patient is alert, oriented x 3, equal unlabored respirations, skin warm/dry/pink. Patient denies pain at this time. 15:30 Reassessment: Patient appears in no apparent distress at this time. No changes from kc6 previously documented assessment. Patient and/or family updated on plan of care and expected duration. Pain level reassessed. Patient is alert, oriented x 3, equal unlabored respirations, skin warm/dry/pink. 16:30 Reassessment: Patient appears in no apparent distress at this time. No changes from kc6 previously documented assessment. Patient and/or family updated on plan of care and expected duration. Pain level reassessed. Patient is alert, oriented x 3, equal unlabored respirations, skin warm/dry/pink. please see [facility] for further charting Patient denies pain at this time. Vital Signs: 11:21 BP 145 / 90; Pulse 81; Resp 15 S; Temp 98.5(O); Pulse Ox 96% on R/A; Weight 57.15 kg kc6 (R); Height 5 ft. 5 in. (165.10 cm) (R); Pain 0/10; 12:30 BP 146 / 70; Pulse 90; Resp 27 S; Pulse Ox 100% on R/A; kc6 13:49 BP 138 / 90; Pulse 80; Resp 57; Pulse Ox 98% on R/A; ld1 15:00 BP 141 / 84; Pulse 72; Resp 18 S; Pulse Ox 97% on R/A; Pain 0/10; kc6 19:27 BP 123 / 56; Pulse 68; Pulse Ox 99% on R/A; kl 21:00 BP 118 / 64; Pulse 68; Resp 15; Pulse Ox 96% on R/A; ll3 11:21 Body Mass Index 20.97 (57.15 kg, 165.10 cm) kc6 ED Course: 11:21 Patient arrived in ED. kc6 11:21 Nina Garcia, SHELIA is Primary Nurse. kc6 11:21 Malcolm Dawson MD is Attending Physician. jr11 11:24 Triage completed. kc6 11:26 Patient has correct armband on for positive identification. Placed in gown. Call light kc6 in reach. Side rails up X2. 11:26 Arm band placed on. kc6 11:31 Maintain EMS IV. Dressing intact. Good blood return noted. Site clean \T\ dry. Gauge \T\ christie 6 site: 20G RFA. 11:59 UA Sent. kc6 12:09 Basic Metabolic Panel Sent. kc6 12:09 CBC with Diff Sent. kc6 12:09 LFT's Sent. kc6 12:09 Troponin HS Sent. kc6 13:31 Inserted saline lock: 20 gauge in left antecubital area, using aseptic technique. Blood kc6 collected. 13:32 Notified ED physician of a critical lab result(s). troponin 152.9. iw 14:43 Kevin Davison is Hospitalizing Provider. jr11 14:48 SARS RAPID Sent. kc6 15:24 No provider procedures requiring assistance completed. Patient admitted, IV remains in kc6 place. 19:21 Notified Nurse Practitioner and/or Physician Dietetic Assistant of a critical lab result(s), cpk bb [phone] CAM notified. Administered Medications: 12:12 Drug: NS 0.9% 1000 ml Route: IV; Rate: 1 bolus; Site: right forearm; kc6 13:12 Follow up: Response: No adverse reaction; IV Status: Completed infusion; IV Intake: kc6 1000ml Medication: 15:24 VIS not applicable for this client. kc6 Intake: 13:12 IV: 1000ml; Total: 1000ml. kc6 Outcome: 14:43 Decision to Hospitalize by Provider. jr11 15:24 Admitted to ER Hold. Please see [facility] for further documentation. kc6 15:24 Condition: stable 15:24 Instructed on the need for admit. 21:16 Patient left the ED. ll3 Signatures: Yamel Aiken RN RN kl Ballard, Brenda, RN RN bb Yoko Lobato RN RN iw Anitha Stewart RN RN ld1 Jacqueline Jean Baptiste RN RN ll3 Malcolm Dawson MD MD jr11 Nina Garcia RN RN kc6 Corrections: (The following items were deleted from the chart) 12:08 11:59 UA MICROSCOPIC+U.LAB.BRZ drawn and sent. kc6 EDMS
--- NOTE | 2022-12-08 14:44 | EDPHYS ---
Physician Documentation [facility] Name: Marjan Ortiz Age: 87 yrs Sex: Female : 1935 Arrival Date: 12/08/2022 Time: 11:21 Bed 3 Private MD: ED Physician Malcolm Dawson HPI: 12/08 12:16 Patient is an 87-year-old female with history of hypertension history of depression jr11 here feeling generalized weakness, no focal deficit. Patient also states that she has been urinating more frequently over the last 2 to 3 days. Patient with this generalized weakness, is not eating well, eats bottle of boost, states that she can eat but does not feel like it. Patient went to her primary care doctor since these complaints have been going on for 5 days and was told she had depression. Patient started on Zoloft however she only took 2 days worth. Denies any nausea vomiting denies exertional pain, no tearing pain, does not radiate to the back, does not cross the diaphragm. No diaphoresis, no vomiting. No syncope or near-syncope. . Historical: - Allergies: 11:24 No Known Allergies; 6 - Home Meds: 11:24 Zoloft Oral [Active]; levothyroxine oral [Active]; 6 - PMHx: 11:24 Hypertensive disorder; Hypothyroidism; Depressive disorder; [facility] - PSHx: 11:24 right knee; kc6 - Immunization history:: Client reports having NOT received the Covid vaccine. Flu vaccine is not up to date. - Social history:: Smoking status: Patient denies any tobacco usage or history of. ROS: 12:16 All other systems are negative. jr11 Exam: 12:16 Constitutional: This is a well developed, well nourished patient who is awake, alert, jr11 and in no acute distress. Head/Face: Normocephalic, atraumatic. Eyes: Extra-ocular motions intact. Lids and lashes normal. Conjunctiva and sclera are non-icteric and not injected. Cornea within normal limits. Periorbital areas with no swelling, redness, or edema. ENT: dry mm Chest/axilla: Normal chest wall appearance and motion. Nontender with no deformity. No lesions are appreciated. Cardiovascular: Regular rate and rhythm with a normal S1 and S2. No gallops, murmurs, or rubs. Normal PMI, no JVD. No pulse deficits. Respiratory: Lungs have equal breath sounds bilaterally, clear to auscultation and percussion. No rales, rhonchi or wheezes noted. No increased work of breathing, no retractions or nasal flaring. Abdomen/GI: Soft, non-tender, with normal bowel sounds. No distension or tympany. No guarding or rebound. No evidence of tenderness throughout. Back: No spinal tenderness. No costovertebral tenderness. Full range of motion. Skin: Warm, dry with normal turgor. Normal color with no rashes, no lesions, and no evidence of cellulitis. MS/ Extremity: Pulses equal, no cyanosis. Neurovascular intact. Full, normal range of motion. Neuro: Awake and alert, GCS 15, oriented to person, place, time, and situation. No gross motor or sensory deficits. Vital Signs: 11:21 BP 145 / 90; Pulse 81; Resp 15 S; Temp 98.5(O); Pulse Ox 96% on R/A; Weight 57.15 kg kc6 (R); Height 5 ft. 5 in. (165.10 cm) (R); Pain 0/10; 12:30 BP 146 / 70; Pulse 90; Resp 27 S; Pulse Ox 100% on R/A; kc6 13:49 BP 138 / 90; Pulse 80; Resp 57; Pulse Ox 98% on R/A; ld1 15:00 BP 141 / 84; Pulse 72; Resp 18 S; Pulse Ox 97% on R/A; Pain 0/10; kc6 19:27 BP 123 / 56; Pulse 68; Pulse Ox 99% on R/A; kl 21:00 BP 118 / 64; Pulse 68; Resp 15; Pulse Ox 96% on R/A; ll3 11:21 Body Mass Index 20.97 (57.15 kg, 165.10 cm) kc6 MDM: 11:49 Patient medically screened. jr11 12:16 Differential Diagnosis altered mental status, Urinary tract infection, generalized jr11 decline, failure to thrive secondary to adjustment disorder from the of her daughter. Patient states she recently lost her daughter about a month ago.. Data reviewed: vital signs, nurses notes. Historians other than the Patient: Daughter/Son: Grandson states that she has not been eating well, has been trying to get her boost.. 12:19 Independent interpretation of the following test(s) in the Emergency Department EKG: anastasia See my EKG interpretation above Rhythm Strip Interpretation Rate: 75BPM Rhythm: regular. ED course: EKG interpreted by me shows normal sinus rhythm, normal axis, normal intervals, no acute ST changes.. 12/08 11:52 Order name: Basic Metabolic Panel; Complete Time: 13:33 [facility] 12/08 11:52 Order name: CBC with Diff; Complete Time: 13:38 [facility] 12/08 11:52 Order name: LFT's; Complete Time: 13:33 [facility] 12/08 11:52 Order name: Troponin HS; Complete Time: 13:33 [facility] 12/08 11:52 Order name: UA; Complete Time: 13:33 [facility] 12/08 12:01 Order name: Urine Dipstick-Ancillary; Complete Time: 13:33 [facility] 12/08 13:34 Order name: SARS RAPID; Complete Time: 15:15 kj 12/08 16:20 Order name: Creatine Phosphokinase [facility] 12/08 16:20 Order name: T4 Free [facility] 12/08 16:20 Order name: Thyroid Stimulating Hormone [facility] 12/08 16:20 Order name: Urinalysis [facility] 12/08 16:20 Order name: Basic Metabolic Panel [facility] 12/08 16:20 Order name: Basic Metabolic Panel [facility] 12/08 11:52 Order name: EKG; Complete Time: 11:53 [facility] 12/08 16:20 Order name: Basic Metabolic Panel [facility] 12/08 16:20 Order name: Basic Metabolic Panel [facility] 12/08 16:20 Order name: CBC with Automated Diff EDMD 12/08 16:20 Order name: CBC with Automated Diff EDMS 12/08 16:20 Order name: CBC with Automated Diff EDMS 12/08 16:20 Order name: CBC with Automated Diff MS 12/08 16:20 Order name: Lipid Profile [facility] 12/08 16:20 Order name: Lipid Profile [facility] 12/08 16:20 Order name: Magnesium EDMD 12/08 16:20 Order name: Magnesium EDMS 12/08 16:20 Order name: Troponin High Sensitivity EDMD 12/08 16:20 Order name: Troponin High Sensitivity EDMS 12/08 16:20 Order name: Troponin High Sensitivity EDMD 12/08 11:52 Order name: Cardiac monitoring; Complete Time: 11:52 [facility] 12/08 11:52 Order name: EKG - Nurse/Tech; Complete Time: 12:18 12/08 11:52 Order name: IV Saline Lock; Complete Time: 52 12/08 11:52 Order name: Labs collected and sent; Complete Time: 12:09 [facility] 12/08 11:52 Order name: O2 Per Protocol; Complete Time: [facility] 12/08 11:52 Order name: O2 Sat Monitoring; Complete Time: :12/08 12:23 Order name: Labs - recollect needed: chem 7 and cbc (purple and green); Complete Time: iw 12/08 16:20 Order name: Heart Healthy EDMD Administered Medications: 12:12 Drug: NS 0.9% 1000 ml Route: IV; Rate: 1 bolus; Site: right forearm; kc6 13:12 Follow up: Response: No adverse reaction; IV Status: Completed infusion; IV Intake: kc6 1000ml Disposition Summary: 12/08/22 14:43 Hospitalization Ordered Hospitalization Status: Observation jr Provider: Kevin Davison [facility] Condition: Fair [facility] Problem: new [facility] Symptoms: are unchanged jr Bed/Room Type: Standard [facility] Location: Telemetry/MedSurg (observation)(12/08/22 20:04) Room Assignment: [facility](12/08/22 20:04) cg Diagnosis - Subsequent non-ST elevation (NSTEMI) myocardial infarction [facility] - Muscle weakness (generalized) [facility] Forms: - Medication Reconciliation Form jr11 - SBAR form jr11 Signatures: Dispatcher [employer] EDMD Yoko Lobato RN RN iw Tracy Harvey RN RN cg Malcolm Dawson MD MD jr Nina Garcia RN RN kc6 Corrections: (The following items were deleted from the chart) 12:08 11:52 UA MICROSCOPIC+U.LAB.BRZ ordered. [facility] 20: 14:43 Telemetry/MedSurg (observation) [address] 20:04 14:[address]
[2022-12-08 15:03] LABS: SARS-CoV-2 Antigen Rapid Res Negative (Negative)
[2022-12-08] MEDS ORDERED: ONDANSETRON 4 MG/2 ML VIAL IV PRN (16:13)
[2022-12-08] MEDS ORDERED: NA CHLORIDE 0.9% 1,000 ML IV SCH (17:00)
[2022-12-08] MEDS: ASPIRIN 81 MG CHEWABLE TABLET PO SCH (17:00)
[2022-12-08] MEDS: ENOXAPARIN 40 MG/0.4 ML SQ SCH (17:00)
[2022-12-08] MEDS ORDERED: ASPIRIN 81 MG CHEWABLE TABLET ONE (17:33)
[2022-12-08] MEDS ORDERED: ENOXAPARIN 40 MG/0.4 ML SQ ONE (17:33)
--- NOTE | 2022-12-08 17:41 | P.HP ---
Certification for Inpatient Patient admitted to: Observation With expected LOS: <2 Midnights Practitioner: I am a practitioner with admitting privileges, knowledge of patient current condition, hospital course, and medical plan of care. Services: Services provided to patient in accordance with Admission requirements found in Title 42 Section 412.3 of the Code of Federal Regulations Patient History Date of Service: 12/08/22 Primary Care Provider: Saqib Reason for admission: Muscle weakness/NSTEMI History of Present Illness: This is an 87-year-old female with prior medical history significant for hypertension, hypothyroidism, and depressive disorders. Patient presents to the emergency with complaints of weakness. Patient was evaluated in the ED, patient is alert and oriented and able to answer questions appropriately. Per patient, she had a fall last Monday while trying to get up to use the television. No injuries were sustained during the fall . She said she got up and could not move her extremities. She says she rested Monday through Monday, but decided to go see her PCP on Monday because she was feeling weaker and weaker, with urinary frequency at night. Patient also states that she has been dealing with a lot of stress. She also reports decreased appetite. She reports her only child of bladder cancer back in October. She said her PCP prescribed her Zoloft. Per patient, her PCP informed her that the Zoloft will help with her depression and her appetite. Patient reports coming to the emergency room today because she almost fell and that is when she called EMS. Patient denies any chest pain, shortness of breath ,palpitation ,nausea,vomiting. In the ER, patient was found to have elevated troponins. Patient will be admitted under care of Dr. Davison. Cardiology will be consulted for further management. We will trend 2 more troponins. - Past Medical/Surgical History Has patient received pneumonia vaccine in the past: Yes -: Depression -: Hypertension -: Hypothyroidism Past Surgical History: Reviewed- Non-Contributory - Family History Family History: Reviewed- Non-Contributory - Social History Smoking Status: Never smoker Alcohol use: No CD- Drugs: No Caffeine use: Yes Place of Residence: Home Review of Systems 10-point ROS is otherwise unremarkable General: Weakness Neurological: Weakness Physical Examination - Vital Signs Temperature: 98.5 F Blood Pressure: 141/83 Pulse: 80 Respirations: 15 Pulse Ox (%): 94 - Physical Exam General: Alert, In no apparent distress HEENT: Atraumatic, Normocephalic, PERRLA Neck: Supple, 2+ carotid pulse no bruit Respiratory: Clear to auscultation bilaterally, Normal air movement Cardiovascular: No edema, Normal pulses, Regular rate/rhythm Capillary refill: <2 Seconds Gastrointestinal: Normal bowel sounds Musculoskeletal: No clubbing, No swelling Integumentary: No rashes, No breakdown Neurological: Normal speech, Normal strength at 5/5 x4 extr, Normal tone, Sensation intact Lymphatics: No axilla or inguinal lymphadenopathy - Studies Laboratory Data (last 24 hrs) 12/08/22 13:27: WBC 7.70, Hgb 12.3, Hct 35.9 L, Plt Count 286 12/08/22 13:01: Sodium 133 L, Potassium 4.6, BUN 18, Creatinine 0.82, Glucose 114 H, Total Bilirubin 0.8, AST 125 H, ALT 121 H, Alkaline Phosphatase 60 Assessment and Plan - Plan Assessment Generalized weakness NSTEMI stress-induced Hypertension Depression Hypothyroidism Plan Generalized weakness with fall Continue IV fluid CPK ordered Assist with ambulation UA negative for any infection NSTEMI stress-induced Elevated troponin, will trend 2 more Cardiology consulted, recommendations appreciated Continue monitoring on telemetry Continue aspirin and statin No echo on file Hypertension Resume home medication when appropriate Depression Resume medications when approved Hypothyroidism Resume medication when approved DVT PPX- Lovenox Code Status- Full code Discharge Plan: Home Plan to discharge in: 48 Hours - Advance Directives Does patient have a Living Will: No Does patient have a Durable POA for Healthcare: No - Code Status/Comfort Care Code Status Assessed: Yes (Full code) Critical Care: No Time Spent Managing Pts Care (In Minutes): 50
--- NOTE | 2022-12-08 18:58 | CON ---
Date of Consultation: 12/08/2022 Reason For Consultation: Elevated troponin. History Of Present Illness: An 87-year-old female, history of depression, hypertension, hypothyroidi sm. She has been feeling very weak. She has been battling with depression after the of her betsy mcdaniels dud to cancer and she has been very weak. Apparently last Monday, she was standing up and her legs not hold her anymore, so she fell on the floor, did not hit her head. Her children put her on bed and she stayed in bed all weekend and then she saw her doctor on Monday, but she started having more generalized weakness and she is having frequent urination. Denies having any chest pain. There is no shortness of breath. No other complaints. Past Medical History: As outlined above in HPI. Medications: Refer to reconciliation sheet for detailed list. Allergies: NO KNOWN DRUG ALLERGIES. Family History: No premature coronary artery disease or cancer. Social History: She does not smoke or drink. Does not use any drugs. Review of Systems: All systems reviewed and they were negative except what mentioned in HPI. Physical Examination: Vital Signs: Temperature is 98.5, pulse 80, breathing at 15, blood pressure 141/80, saturating 94% o n room air. General: Pleasant elderly female, in no apparent distress. Head and Neck: Pupils are equal, reactive to light. Intact eye movements. No JVD. No cervical lym phadenopathy. Neck is supple. Thyroid is not enlarged. Lungs: Clear to auscultation bilaterally. No rhonchi, wheezing, or crackles. No accessory muscle u se. Heart: Regular rate and rhythm. No extra sounds. Abdomen: Soft, nontender. Bowel sounds positive. No organomegaly. No masses or hernia. No rigidi ty or rebound. Extremities: No edema, clubbing, or cyanosis. Intact pulses. Skin: No rash. Neurologic: Alert, awake, oriented x3. No acute focal deficits appreciated. Investigations: BUN 18, creatinine 0.82. AST is 125, ALT is 121. Troponin 152 and her hemoglobin i s 12.3, white blood cell count 7.7. Assessment And Recommendations: 1.Elevated troponin. There is no chest pain, but generally is weak. Trend 2 more sets of cardiac e nzymes. Give her aspirin 81 mg daily and based on the enzymes trend, we will make a decision on hepa rin. Obtain echocardiogram tomorrow and further recommendations to follow. 2.Generalized weakness with mild dehydration. Agree with gentle IV hydration. Carefully monitor fo r fluid overload. 3.Dyslipidemia. Continue statin. SR/MODL Voice ID: [id number] Report ID: [id number]
[2022-12-08 19:17] LABS: Thyroid Stimulating Hormone 3.92 uIU/mL (0.358-3.740)
[2022-12-08] MEDS ORDERED: ATORVASTATIN 40 MG TAB PO SCH (21:00)
[2022-12-08 23:17] VITALS: BMI 22.9
[2022-12-08] MEDS ORDERED: MELATONIN 5 MG TABLET PO PRN (23:27)
[2022-12-08] MEDS: NA CHLORIDE 0.9% 1,000 ML IV SCH (23:47)
[2022-12-09 03:39] LABS: Absolute Lymphocytes (CBC) 1.4 K/uL (0.7-4.9); Hematocrit 38.7 % (36.0-45.0); Lymphocytes % 17.4 % (15.3-44.8); MCV 90.5 fL (80-100); MPV 7.1 fL (7.6-11.3); RBC Red Blood Cell Count 4.27 M/uL (3.86-4.86)
[2022-12-09 04:11] LABS: Magnesium 1.9 mg/dL (1.6-2.4); Potassium 4.6 mmol/L (3.5-5.1)
[2022-12-09] MEDS: NA CHLORIDE 0.9% 1,000 ML IV SCH (06:32)
[2022-12-09] MEDS ORDERED: PNEUMOCOCCAL VACCINE 0.5 ML IMVAC ONE (08:00)
[2022-12-09] MEDS: ENOXAPARIN 40 MG/0.4 ML SQ SCH (08:24)
[2022-12-09] MEDS: ASPIRIN 81 MG CHEWABLE TABLET PO SCH (08:24)
[2022-12-09 09:24] VITALS: O2SAT 99
[2022-12-09 11:47] VITALS: BP 132/63; TEMP 98.4
--- NOTE | 2022-12-09 13:18 | EKG ---
Test Date: 2022-12-08 Test Time: 12:17:18 Oil Sprayer: TANGELA MEASUREMENT RESULTS: Intervals: Rate: 73 OR: 156 QRSD: 78 QT: 424 QTc: 467 [place]: P: 74 OR: 156 QRS: 62 T: 55 INTERPRETIVE STATEMENTS: Sinus rhythm with premature atrial complexes Otherwise normal ECG No previous ECG available for comparison Electronically Signed On 12-09-22 13:15:13 [employer]PER[employer] by Neville Yang
--- NOTE | 2022-12-09 14:30 | P.DS ---
Admission Date: 12/08/22 Discharge Date: 12/09/22 Primary Care Provider: Saqib Disposition: ROUTINE DISCHARGE Discharge Condition: FAIR Reason for Admission: Muscle weakness/NSTEMI - Problems (1) Elevated troponin Status: Acute (2) Elevated CK Status: Acute (3) Generalized weakness Status: Acute (4) Hypertension Status: Acute Brief History of Present Illness: This is an 87-year-old female with prior medical history significant for hypertension, hypothyroidism, and depressive disorders. Patient presented to the emergency with complaints of weakness. Patient was evaluated in the ED, and noted to alert and oriented and able to answer questions appropriately. She reported 1 episode of fall. No injuries were sustained during the fall . She went to see her PCP because she was feeling progressively weak with urinary frequency at night. She also reported grieving the of her child who from bladder cancer in October 2022. She said her PCP prescribed her Zoloft. In the ER, patient was found to have elevated troponins. Patient was placed under observation for further evaluation and treatment. Hospital Course: Patient placed under observation on the medical floor, Troponin mildly elevated but trended flat. Noted patient CK and LFT were also elevated. Elevated troponin likely related to the elevated CK. CK level trended down with IV hydration. Seen by cardiology who recommended trending troponin and aspirin. No complaint of chest pain or shortness of breath. Patient currently asymptomatic. She ambulated 300 feet with a walker with contact-guard assist. Patient vitals are stable and she is deemed stable for discharge. Vital Signs/Physical Exam: Temp Pulse Resp BP Pulse Ox 98.4 F 68 18 132/63 99 12/09/22 11:46 12/09/22 11:46 12/09/22 11:46 12/09/22 11:46 12/09/22 11:46 General: Alert, In no apparent distress, Oriented x3 HEENT: Mucous membr. moist/pink Neck: JVD not distended Respiratory: Clear to auscultation bilaterally, Normal air movement Cardiovascular: Regular rate/rhythm Gastrointestinal: Soft and benign, Non-distended, No tenderness Musculoskeletal: No swelling Integumentary: No rashes Neurological: Normal strength at 5/5 x4 extr Laboratory Data at Discharge: WBC 8.00 K/uL (4.3-10.9) 12/09/22 03:25 Hgb 12.7 g/dL (12.0-15.0) 12/09/22 03:25 Hct 38.7 % (36.0-45.0) 12/09/22 03:25 Plt Count 312 K/uL (152-406) 12/09/22 03:25 Sodium 135 mmol/L (136-145) L 12/09/22 03:25 Potassium 4.6 mmol/L (3.5-5.1) 12/09/22 03:25 BUN 15 mg/dL (7-18) 12/09/22 03:25 Creatinine 0.74 mg/dL (0.55-1.02) 12/09/22 03:25 Glucose 110 mg/dL (74-106) H 12/09/22 03:25 Magnesium 1.9 mg/dL (1.6-2.4) 12/09/22 03:25 Total Bilirubin 0.8 mg/dL (0.2-1.0) 12/08/22 13:01 AST 125 U/L (15-37) H 12/08/22 13:01 ALT 121 U/L (13-56) H 12/08/22 13:01 Alkaline Phosphatase 60 U/L (45-117) 12/08/22 13:01 Triglycerides 119 mg/dL (<150) 12/09/22 03:25 Cholesterol 183 mg/dL (<200) 12/09/22 03:25 HDL Cholesterol 94 mg/dL (40-60) H 12/09/22 03:25 Cholesterol/HDL Ratio 1.95 12/09/22 03:25 Home Medications: Amlodipine Besylate/Benazepril [Amlodipine-Benazepril 10-20 mg] 1 each PO DAILY 12/09/22 Aspirin [Adult Low Dose Aspirin EC] 81 mg PO DAILY #30 tab 12/09/22 Levothyroxine Sodium [Levothyroxine] 50 mcg PO DAILY 12/09/22 Melatonin 5 mg PO BEDTIME PRN PRN #30 tab 12/09/22 Montelukast Sodium 10 mg PO DAILY 12/09/22 Sertraline [Zoloft*] 25 mg PO DAILY 12/09/22 New Medications: Aspirin [Adult Low Dose Aspirin EC] 81 mg PO DAILY #30 tab Melatonin 5 mg PO BEDTIME PRN PRN #30 tab PRN Reason: Insomnia Diet: AHA Activity: Fall precautions Followup: Robert Cerrato MD [Primary Care Provider] - 1-2 Weeks (Call to schedule appointment.)
--- NOTE | 2022-12-09 15:41 | PN ---
Date of Progress Note: 12/09/2022 Subjective: Seen by bedside. Doing well. No chest pain. Review of Systems: No chest pain, shortness of breath, orthopnea, cough. No nausea, vomiting, diarrhea. All other syst ems reviewed and they were negative. Physical Examination: Vital Signs: Reviewed. Head and Neck: Pupils are equal, reactive to light. Intact eye movements. No JVD. No cervical lym phadenopathy. Neck is supple. Thyroid is not enlarged. Lungs: Clear to auscultation bilaterally. No rhonchi, wheezing, or crackles. No accessory muscle u se. Heart: Regular rate and rhythm. No extra sounds. Abdomen: Soft, nontender. Bowel sounds positive. No organomegaly. No masses or hernia. No rigidi ty or rebound. Extremities: No clubbing or cyanosis. Intact pulses. Skin: No rash. Neurologic: Alert, awake, oriented x3. No acute focal deficits appreciated. Lymph Nodes: No cervical or axillary lymphadenopathy. Investigations: CK level was 1498. Troponin trended down and now it is 124. Assessment And Recommendations: 1.Elevated troponin. This is due to rhabdomyolysis. The patient has no chest pain. No further car diac workup is recommended during this hospital stay. The patient can be released to follow up as an outpatient. We will plan for a stress test as an outpatient. 2.Dehydration. Continue IV fluid management. 3.Rhabdomyolysis. Continue hydration and follow up as an outpatient post discharge. SR/MODL Voice ID: [id number] Report ID: [id number]
== END 2022-12-09 14:15 | disposition home or self-care (01) ==
LOC: ER 11:16 → ERHOLD 16:09 → 4TH 20:08
PROVIDERS: ADMIT Internal Medicine; ATTEND Internal Medicine
DX: M62.82 Rhabdomyolysis (principal); E86.0 Dehydration; R77.8 Other specified abnormalities of plasma proteins; I10 Essential (primary) hypertension; E03.9 Hypothyroidism, unspecified; F32.A Depression, unspecified; E78.5 Hyperlipidemia, unspecified; Z20.822 Contact with and (suspected) exposure to COVID-19; Z23 Encounter for immunization
CPT/HCPCS: 93005; 85025 ×2; 81001; 80048 ×2; 36415 ×2; 83735; 82550 ×2; 80061; 80076; 84443; 81003; 84484 ×3; 84439; 97116; 97161; 96360; 99285; 87811; J1650 ×2; J7030 ×3; G0378

== ENCOUNTER 2022-12-15 03:42 | Inpatient (IN) | payer OTHER ==
--- OUTSIDE RECORDS SUMMARY | 2022-12-15 03:46 | XMS REPORT | Continuity of Care Document ---
:1935 Author Organization [facility] t Address [address] [place] [address] Care Team Providers Name Role Phone MIKHAIL Attending Clinician Unavailable Robert Cerrato Attending Clinician [phone] JUSTIN DELEON Attending Clinician Unavailable Justin Brunson Attending Clinician MIKHAIL Admitting Clinician Unavailable Payers Payer Name Policy Type Policy Number Effective Date Expiration Date S anne-marie [facility] [id number] (MEDICARE REPLACEMENT/ADVANTA GE - PPO) [facility] [id number] 2021 [facility] 00:00:00 PPO Problems Condition Condition Condition Status Onset Resolution Last Treating Co mments Source Name Details Category Date Date Treatment Clinician Date Acute Acute Problem Active [place] bronchitis Bronchitis 03-14 Co mmuni 00:00: [facility] Impairment Impairment Problem Active 2020-11 S [place] of balance of Balance 11-20 Co mmuni 00:00: [facility] At risk At Risk Problem Active 2020-11 [place] for falls for Falls 11-20 Comm uni 00:: [facility] Hypothyroi Hypothyroi Problem Active 2019- S [place] dism dism 04-02 Communi 00:00: [facility] Hypertensi Hypertensi Problem Active 2019- S [place] ve ve -17 Communi disorder Disorder 00:00: 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 No known No known Disease Unive rs active active ity of problems problems [facility] Allergies, Adverse Reactions, Alerts Allergy Allergy Status Severity Reaction(s) Onset Inactive Treating Comm ents Source Name Type Date Date Clinician NO KNOWN Drug Active Univers ALLERGIE Class ity of [facility] [place] [facility] Tatum Melatoni Allergy Active Confusion [facility] Social History Social Habit Start Date Stop Date Quantity Comments Source Exposure to Not sure [facility] SARS-CoV-2 (event) Medica l Branch Tobacco use and 2021-03-09 2021-03-09 Never used [facility] exposure 00:00:00 00:00:00 Medical Branch Sex Ass[birth year] At [birth year] [facility] 00:00:00 00:00:00 Medical Branch Smoking Status Start Date Stop Date Source Never smoker [facility] Medications Ordered Filled Start Stop Current Ordering Indication Dosage Frequency Signature Comments Components Source Medication Medication Date Date Medication? Clinician (SIG) Name Name methylPREDN 2019-0 Yes [id number] Take by [facility] ISolone 5-13 9107 mouth ity of (MEDROL, 00:00: SEE-INSTRU Hany as HU,) 4 mg 00 CTIONS. Medica l tablets follow Branch package directions methylPREDN 2019-0 Yes [id number] Take by [facility] ISolone 5-13 9107 mouth ity of (MEDROL, 00:00: SEE-INSTRU Ahny as HU,) 4 mg 00 CTIONS. Medica l tablets follow Branch package directions methylPREDN 2019-0 Yes [id number] Take by [facility] ISolone 5-13 9107 mouth ity of (MEDROL, 00:00: [...] BY ity of capsule 00:00: MOUTH AT [place] [address] BEDTIME Medical Branch montelukast Yes TAKE 1 Univ ers 10 mg 6-27 TABLET BY ity of tablet 00:00: MOUTH AT [place] [address] BEDTIME Medical WITH A Branch FULL GLASS OF WATER benzonatate Yes TAKE ONE Un jefferson 100 mg 6-27 CAPSULE BY ity of capsule 00:00: MOUTH [place] [address] EVERY 6 Medical HOURS AND Branch 2 CAPSULES BY MOUTH AT BEDTIME NEEDED FOR COUGH gabapentin Yes TAKE ONE Uni vers 300 mg 6-27 CAPSULE BY ity of capsule 00:00: MOUTH AT [place] [address] BEDTIME Medical Branch montelukast Yes TAKE 1 Univ ers 10 mg 6-27 TABLET BY ity of tablet 00:00: MOUTH AT [place] [address] BEDTIME Medical WITH A Branch FULL GLASS OF WATER benzonatate Yes TAKE ONE Un jefferson 100 mg 6-27 CAPSULE BY ity of capsule 00:00: MOUTH [place] [address] EVERY 6 Medical HOURS AND Branch 2 CAPSULES BY MOUTH AT BEDTIME NEEDED FOR COUGH gabapentin Yes TAKE ONE Uni vers 300 mg 6-27 CAPSULE BY ity of capsule 00:00: MOUTH AT [place] [address] BEDTIME Medical Branch montelukast Yes TAKE 1 Univ ers 10 mg 6-27 TABLET BY ity of tablet 00:00: MOUTH AT [place] [address] BEDTIME Medical WITH A Branch FULL GLASS OF WATER benzonatate Yes TAKE ONE Un jefferson 100 mg 6-27 CAPSULE BY ity of capsule 00:00: MOUTH [place] [address] EVERY 6 Medical HOURS AND Branch 2 [...] DAILY Medical Branch amlodipine amlodipine No amlodipine [place] 10 10 10 Communi mg-benazepr mg-benazepr mg-benazep ty il 20 mg il 20 mg ril 20 mg Ho spita capsule capsule capsule l TAKE 1 TAKE 1 TAKE 1 Clinics CAPSULE BY CAPSULE BY CAPSULE BY MOUTH EVERY MOUTH EVERY MOUTH DAY DAY EVERY DAY azithromyci azithromyci No azithromyc [place] n 250 mg n 250 mg in [...] 4 DAYS dexamethaso dexamethaso No 10mg dexamethas [place] ne sodium ne sodium one sodium Communi phosphate phosphate phosphate ty 10 mg/mL 10 mg/mL 10 mg/mL Hos martin injection injection injection l solution solution solution Cli nics Take 10 mg Take 10 mg Take 10 mg by by by injection injection injection route. route. route. Guaiatussin Guaiatussin No Guaiatussi [place] AC 10 AC 10 n AC 10 Communi mg-100 mg/5 mg-100 mg/5 mg-100 ty mL oral mL oral mg/5 mL Hospit a liquid TAKE liquid TAKE oral l 10 ML EVERY 10 ML EVERY liquid Clinics 4-6 HOURS 4-6 HOURS TAKE 10 ML BY ORAL BY ORAL EVERY 4-6 ROUTE. ROUTE. HOURS BY ORAL ROUTE. Kenalog 40 Kenalog 40 No 40mg Kenalog 40 [place] mg/mL mg/mL mg/mL Communi suspension suspension suspension ty for for for Hospita injection injection injection l Take 40 mg Take 40 mg Take 40 mg Clinics by by by injection injection injection route. route. route. montelukast montelukast No montelukas [place] 10 mg 10 mg t 10 mg Communi tablet TAKE tablet TAKE tablet ty 1 TABLET BY 1 TABLET BY TAKE 1 Hospita MOUTH EVERY MOUTH EVERY TABLET BY l DAY DAY MOUTH Clinics EVERY DAY amlodipine amlodipine No amlodipine [place] 10 10 10 Communi mg-benazepr mg-benazepr mg-benazep ty il 20 mg il 20 mg ril 20 mg Ho spita capsule capsule capsule l TAKE 1 TAKE 1 TAKE 1 Clinics CAPSULE BY CAPSULE BY CAPSULE BY MOUTH EVERY MOUTH EVERY MOUTH DAY DAY EVERY DAY azithromyci azithromyci No azithromyc [place] n 250 mg n 250 mg in [...] 4 DAYS dexamethaso dexamethaso No 10mg dexamethas [place] ne sodium ne sodium one sodium Communi phosphate phosphate phosphate ty 10 mg/mL 10 mg/mL 10 mg/mL Hos martin injection injection injection l solution solution solution Cli nics Take 10 mg Take 10 mg Take 10 mg by by by injection injection injection route. route. route. Guaiatussin Guaiatussin No Guaiatussi [place] AC 10 AC 10 n AC 10 Communi mg-100 mg/5 mg-100 mg/5 mg-100 ty mL oral mL oral mg/5 mL Hospit a liquid TAKE liquid TAKE oral l 10 ML EVERY 10 ML EVERY liquid Clinics 4-6 HOURS 4-6 HOURS TAKE 10 ML BY ORAL BY ORAL EVERY 4-6 ROUTE. ROUTE. HOURS BY ORAL ROUTE. Kenalog 40 Kenalog 40 No 40mg Kenalog 40 [place] mg/mL mg/mL mg/mL Communi suspension suspension suspension ty for for for Hospita injection injection injection l Take 40 mg Take 40 mg Take 40 mg Clinics by by by injection injection injection route. route. route. montelukast montelukast No montelukas [place] 10 mg 10 mg t 10 mg Communi tablet TAKE tablet TAKE tablet ty 1 TABLET BY 1 TABLET BY TAKE 1 Hospita MOUTH EVERY MOUTH EVERY TABLET BY l DAY DAY MOUTH Clinics EVERY DAY amlodipine amlodipine No amlodipine [place] 10 10 10 Communi mg-benazepr mg-benazepr mg-benazep ty il 20 mg il 20 mg ril 20 mg Ho spita capsule capsule capsule l TAKE 1 TAKE 1 TAKE 1 Clinics CAPSULE BY CAPSULE BY CAPSULE BY MOUTH EVERY MOUTH EVERY MOUTH DAY DAY EVERY DAY azithromyci azithromyci No azithromyc [place] n 250 mg n 250 mg in [...] 4 DAYS dexamethaso dexamethaso No 10mg dexamethas [place] ne sodium ne sodium one sodium Communi phosphate phosphate phosphate ty 10 mg/mL 10 mg/mL 10 mg/mL [facility] injection injection injection l solution solution solution Cli nics Take 10 mg Take 10 mg Take 10 mg by by by injection injection injection route. route. route. Guaiatussin Guaiatussin No Guaiatussi [place] AC 10 AC 10 n AC 10 Communi mg-100 mg/5 mg-100 mg/5 mg-100 ty mL oral mL oral mg/5 mL Hospit a liquid TAKE liquid TAKE oral l 10 ML EVERY 10 ML EVERY liquid Clinics 4-6 HOURS 4-6 HOURS TAKE 10 ML BY ORAL BY ORAL EVERY 4-6 ROUTE. ROUTE. HOURS BY ORAL ROUTE. Kenalog 40 Kenalog 40 No 40mg Kenalog 40 [place] mg/mL mg/mL mg/mL Communi suspension suspension suspension ty for for for Hospita injection injection injection l Take 40 mg Take 40 mg Take 40 mg Clinics by by by injection injection injection route. route. route. montelukast montelukast No montelukas [place] 10 mg 10 mg t 10 mg Communi tablet TAKE tablet TAKE tablet ty 1 TABLET BY 1 TABLET BY TAKE 1 Hospita MOUTH EVERY MOUTH EVERY TABLET BY l DAY DAY MOUTH Clinics EVERY DAY amlodipine amlodipine No amlodipine [place] 10 10 10 Communi mg-benazepr mg-benazepr mg-benazep ty il 20 mg il 20 mg ril 20 mg Ho spita capsule capsule capsule l TAKE 1 TAKE 1 TAKE 1 Clinics CAPSULE BY CAPSULE BY CAPSULE BY MOUTH EVERY MOUTH EVERY MOUTH DAY DAY EVERY DAY levothyroxi levothyroxi No levothyrox [place] ne 50 mcg ne 50 mcg ine 50 mcg Communi tablet TAKE tablet TAKE tablet ty 1 TABLET BY 1 TABLET BY TAKE 1 Hospita MOUTH EVERY MOUTH EVERY TABLET BY l DAY. STOP DAY. STOP MOUTH Clin ics 25 MCG DOSE 25 MCG DOSE EVERY DAY. STOP 25 MCG DOSE montelukast montelukast No montelukas [place] 10 mg 10 mg t 10 mg Communi tablet TAKE tablet TAKE tablet ty 1 TABLET BY 1 TABLET BY TAKE 1 Hospita MOUTH EVERY MOUTH EVERY TABLET BY l DAY DAY MOUTH Clinics EVERY DAY sertraline sertraline No 1 Q1D sertraline [place] 25 mg 25 mg 25 mg Communi tablet Take tablet Take tablet ty 1 tablet 1 tablet Take 1 Hospi ta every day every day tablet l by oral by oral every day Clin ics route. route. by oral route. amlodipine amlodipine No amlodipine [place] 10 10 10 Communi mg-benazepr mg-benazepr mg-benazep ty il 20 mg il 20 mg ril 20 mg Ho spita capsule capsule capsule l TAKE 1 TAKE 1 TAKE 1 Clinics CAPSULE BY CAPSULE BY CAPSULE BY MOUTH EVERY MOUTH EVERY MOUTH DAY DAY EVERY DAY levothyroxi levothyroxi No levothyrox [place] ne 25 mcg ne 25 mcg ine 25 mcg Communi tablet Take tablet Take tablet ty 1 tablet 1 tablet Take 1 Hospi ta daily by daily by tablet l mouth mouth daily by Clinics mouth montelukast montelukast No montelukas [place] 10 mg 10 mg t 10 mg Communi tablet TAKE tablet TAKE tablet ty 1 TABLET BY 1 TABLET BY TAKE 1 Hospita MOUTH EVERY MOUTH EVERY TABLET BY l DAY DAY MOUTH Clinics EVERY DAY amlodipine amlodipine No amlodipine [place] 10 10 10 Communi mg-benazepr mg-benazepr mg-benazep ty il 20 mg il 20 mg ril 20 mg Ho spita capsule capsule capsule l TAKE 1 TAKE 1 TAKE 1 Clinics CAPSULE BY CAPSULE BY CAPSULE BY MOUTH ONCE MOUTH ONCE MOUTH ONCE DAILY DAILY DAILY azithromyci azithromyci No azithromyc [place] n 250 mg n 250 mg in [...] DAYS dexamethaso dexamethaso No 10mg Q1D dexamethas [place] ne sodium ne sodium one sodium Communi phosphate phosphate phosphate ty (PF) 10 (PF) 10 (PF) 10 Hospit a mg/mL mg/mL mg/mL l injection injection injection Clinics solution solution solution Take 10 mg Take 10 mg Take 10 mg every day every day every day by by by injection injection injection route. route. route. Fluzone Fluzone No Fluzone [place] High-Dose High-Dose High-Dose Communi Quad Quad Quad [...] Kenalog 40 No 40mg Q1D Kenalog 40 [place] mg/mL mg/mL mg/mL Communi suspension suspension suspension ty for for for Hospita injection injection injection l Take 40 mg Take 40 mg Take 40 mg Clinics every day every day every day by by by injection injection injection route. route. route. levothyroxi levothyroxi No levothyrox [place] ne 25 mcg ne 25 mcg ine 25 mcg Communi tablet TAKE tablet TAKE tablet ty 1 TABLET BY 1 TABLET BY TAKE 1 Hospita MOUTH EVERY MOUTH EVERY TABLET BY l DAY DAY MOUTH Clinics EVERY DAY montelukast montelukast No montelukas [place] 10 mg 10 mg t 10 mg Communi tablet TAKE tablet TAKE tablet ty 1 TABLET BY 1 TABLET BY TAKE 1 Hospita MOUTH ONCE MOUTH ONCE TABLET BY l DAILY DAILY MOUTH ONCE Clinics DAILY Mucinex 1 Mucinex 1 No Mucinex 1 [place] PO BID PO BID PO BID Communi ty Hospita l Clinics Prevnar 13 Prevnar 13 No Prevnar 13 [place] (PF) 0.5 mL (PF) 0.5 mL (PF) 0.5 Communi intramuscul intramuscul mL t y ar syringe ar syringe intramuscu Hospita PHARMACIST PHARMACIST magali patel ADMINISTERE ADMINISTERE syringe Clinics D D PHARMACIST IMMUNIZATIO IMMUNIZATIO ADMINISTER N N ED ADMINISTERE ADMINISTERE IMMUNIZATI D AT TIME D AT TIME ON OF OF ADMINISTER DISPENSING DISPENSING ED AT TIME OF DISPENSING amlodipine amlodipine No 1capsul Q1D amlodipine [place] 5 5 e(s) 5 Communi mg-benazepr mg-benazepr mg-benazep ty il 20 mg il 20 mg ril 20 mg Ho spita capsule capsule capsule l Take 1 Take 1 Take 1 Clinics capsule capsule capsule every day every day every day by oral by oral by oral route. route. route. montelukast montelukast No montelukas [place] 10 mg 10 mg t 10 mg Communi tablet TAKE tablet TAKE tablet ty 1 TABLET BY 1 TABLET BY TAKE 1 Hospita MOUTH ONCE MOUTH ONCE TABLET BY l DAILY DAILY MOUTH ONCE Clinics DAILY amlodipine amlodipine No amlodipine [place] 10 10 10 Communi mg-benazepr mg-benazepr mg-benazep ty il 20 mg il 20 mg ril 20 mg Ho spita capsule capsule capsule l TAKE 1 TAKE 1 TAKE 1 Clinics CAPSULE BY CAPSULE BY CAPSULE BY MOUTH EVERY MOUTH EVERY MOUTH DAY DAY EVERY DAY codeine 10 codeine 10 No 10mL Q5H codeine 10 [place] mg-guaifene mg-guaifene mg-guaifen Communi sin 100 sin 100 esin 100 ty mg/5 mL mg/5 mL mg/5 mL Hospit a oral liquid oral liquid oral l Take 10 mL Take 10 mL liquid C linics every 4-6 every 4-6 Take 10 mL hours by hours by every 4-6 oral route. oral route. hours by oral route. montelukast montelukast No montelukas [place] 10 mg 10 mg t 10 mg Communi tablet TAKE tablet TAKE tablet ty 1 TABLET BY 1 TABLET BY TAKE 1 Hospita MOUTH EVERY MOUTH EVERY TABLET BY l DAY DAY MOUTH Clinics EVERY DAY Immunizations Ordered Immunization Filled Immunization Date Status Commen ts Source Name Name Influenza, Influenza, 2021-09-13 Completed [place] injectable, MDCK, injectable, MDCK, 10:02:59 [facility] preservative free, preservative free, Hospital quadrivalent quadrivalent Clinics Influenza, Influenza, 2021-09-13 Completed [place] injectable, MDCK, injectable, MDCK, 10:02:59 [facility] preservative free, preservative free, Hospital quadrivalent quadrivalent Clinics Influenza, Influenza, 2021-09-13 Completed [place] injectable, MDCK, injectable, MDCK, 10:02:59 [facility] preservative free, preservative free, Hospital quadrivalent quadrivalent Clinics Influenza, Influenza, 2021-09-13 Completed [place] injectable, MDCK, injectable, MDCK, 10:02:59 [facility] Influenza, Influenza, 2021-09-13 Completed [place] injectable, MDCK, injectable, MDCK, 10:02:59 [facility] Influenza, Influenza, 2021-09-13 Completed [place] injectable, MDCK, injectable, MDCK, 10:02:59 [facility] Influenza, Influenza, 2021-09-13 Completed [place] injectable, MDCK, injectable, MDCK, 10:02:59 [facility] Influenza, Influenza, 2021-09-13 Completed [place] injectable, MDCK, injectable, MDCK, 10:02:59 [facility] pneumococcal pneumococcal 2019-08-21 Completed [place] polysaccharide PPV23 polysaccharide PPV23 00:00:00 [facility] influenza, influenza, 2019-08-21 Completed [place] injectable, injectable, 00:00:00 [facility] pneumococcal pneumococcal 2019-08-21 Completed [place] polysaccharide PPV23 polysaccharide PPV23 00:00:00 [facility] influenza, influenza, 2019-08-21 Completed [place] injectable, injectable, 00:00:00 [facility]alent [facility] Hospital [facility] pneumococcal pneumococcal 2019-08-21 Completed [place] polysaccharide PPV23 polysaccharide PPV23 00:00:00 [facility] influenza, influenza, 2019-08-21 Completed [place] injectable, injectable, 00:00:00 [facility] Clinics pneumococcal pneumococcal 2019-08-21 Completed [place] polysaccharide PPV23 polysaccharide PPV23 00:00:00 [facility] influenza, influenza, 2019-08-21 Completed [place] injectable, injectable, 00:00:00 [facility] pneumococcal pneumococcal 2019-08-21 Completed [place] polysaccharide PPV23 polysaccharide PPV23 00:00:00 [facility] influenza, influenza, 2019-08-21 Completed [place] injectable, injectable, 00:00:00 [facility] Clin[facility] pneumococcal pneumococcal 2019-08-21 Completed [place] polysaccharide PPV23 polysaccharide PPV23 00:00:00 [facility] influenza, influenza, 2019-08-21 Completed [place] injectable, injectable, 00:00:00 [facility] pneumococcal pneumococcal 2019-08-21 Completed [place] polysaccharide PPV23 polysaccharide PPV23 00:00:00 [facility] influenza, influenza, 2019-08-21 Completed [place] injectable, injectable, 00:00:00 [facility] pneumococcal pneumococcal 2019-08-21 Completed [place] polysaccharide PPV23 polysaccharide PPV23 00:00:00 [facility] influenza, influenza, 2019-08-21 Completed [place] injectable, injectable, 00:00:00 [facility] Vital Signs Vital Name Observation Time Observation Value Comments Source BP Diastolic 2022-12-06 00:00:00 70 mm[Hg] [facility] Height 2022-12-06 00:00:00 65 [in_i] [facility] BMI (Body Mass 2022-12-06 00:00:00 21 kg/m2 [facility] BP Systolic 2022-12-06 00:00:00 116 mm[Hg] [facility] s Body Weight 2022-12-06 00:00:00 2016 [oz_av] [facility] BP Diastolic 2022-08-05 00:00:00 68 mm[Hg] [facility] s Height 2022-08-05 00:00:00 65 [in_i] [facility] s BMI (Body Mass 2022-08-05 00:00:00 24.1 kg/m2 [facility] s BP Systolic 2022-08-05 00:00:00 118 mm[Hg] [facility] s Body Weight 2022-08-05 00:00:00 2320 [oz_av] [facility] BP Diastolic 2022-03-14 00:00:00 68 mm[Hg] [facility] Height 2022-03-14 00:00:00 65 [in_i] [facility] BMI (Body Mass 2022-03-14 00:00:00 24.3 kg/m2 [facility]) [facility] BP Systolic 2022-03-14 00:00:00 142 mm[Hg] [facility] Body Weight 2022-03-14 00:00:00 2336 [oz_av] [facility] s BP Diastolic 2022-01-10 00:00:00 72 mm[Hg] [facility] Height 2022-01-10 00:00:00 65 [in_i] [facility] s BMI (Body Mass 2022-01-10 00:00:00 23.1 kg/m2 [facility]) [facility] s BP Systolic 2022-01-10 00:00:00 116 mm[Hg] [facility] s Body Weight 2022-01-10 00:00:00 2224 [oz_av] [facility] s BP Diastolic 2021-09-20 00:00:00 58 mm[Hg] [facility] Height 2021-09-20 00:00:00 65 [in_i] [facility] BMI (Body Mass 2021-09-20 00:00:00 24.1 kg/m2 [facility]) [facility] BP Systolic 2021-09-20 00:00:00 92 mm[Hg] [facility] Body Weight 2021-09-20 00:00:00 2320 [oz_av] [facility] s Systolic blood 2021-03-09 14:03:00 142 mm[Hg] [facility] Diastolic blood 2021-03-09 14:03:00 81 [facility]Hg[facility] 2021-03-09 14:03:00 78 /min [facility] Body height 2021-03-09 14:03:00 165.1 cm [facility] Body weight 2021-03-09 14:03:00 63.504 kg [facility] BMI 2021-03-09 14:03:00 23.30 kg/m2 [facility] Procedures Procedure Date / Time Performed Performing Clinician Sour e XR FOOT <3 VW RIGHT 2021-03-09 14:11:04 Justin Deleon [facility] Knee Surgery [facility] Ligation of Fallopian [facility] Plan of Care Planned Activity Planned Date Details Comments Source Diagnostic Test 2022-08-05 TSH + free T4, [place] Com munity Pending 00:00:00 serum [code = TSH Hospital C linics + free T4, serum] Diagnostic Test 2022-08-05 BMP, serum or [place] Comm unity Pending 00:00:00 plasma [code = Hospital Clin ics BMP, serum or plasma] Future [facility]ment 2023[facility]01-06 [facility] [address] [place] [address] Encounters Start End Encounter Admission Attending Care Care Encounter Source Date/Time Date/Time Type Type Clinicians Facility Department ID 2022-12-06 2022-12-06 Robert [facility] [place] 00:00:00 00:00:00 [facility] [address] a [facility] [address] , HOSPITAL [facility] s [place], [place] CLINIC, [address] MARGARITA , Ph. 2022-09-07 2022-09-07 Outpatient MARGARITA_R [facility] [id number] [place] 00:00:00 00:00:00 124 [facility] Clin[facility] 2022-09-07 2022-09-07 Outpatient ERCHRISTIANNEON_R [facility] [id number] [place] 00:00:00 00:00:00 126 Commun i ty Hospita l Clinics 2022-08-05 2022-08-05 Outpatient ERICKSON_R [facility] [id number] - [place] 00:00:00 00:00:00 923 Commun i ty Hospita l Clinics 2022-08-05 2022-08-05 Robert [facility] [place] - [place] 00:00:00 00:00:00 [facility] DO: [address] Hospit a [facility], H[place]PITAL [place], [place] CLINIC, [address] MARGARITA , Ph. 2022-03-14 2022-03-14 Outpatient ERICKSON_R [facility] [id number] - [place] 12:17:00 12:17:00 502 Commun i ty Hospita [facility] 2022-03-14 2022-03-14 Robert [facility] [place] 00:00:00 00:00:00 [facility] DO: [address] Hospit a [facility], [facility] [place], [place] CLINIC, [address] MARGARITA , Ph. 2022-03-14 2022-03-14 Outpatient Margarita, [facility] [id number] 00:00:00 00:00:00 Robert [id number] Esteban [id number] 2022-03-14 2022-03-14 Outpatient Cerrato, [facility] [id number] 00:00:00 00:00:00 Robert [id number] Esteban [id number] 2022-03-14 2022-03-14 Outpatient Cerrato, [facility] [id number] 00:00:00 00:00:00 Robert [id number] Esteban [id number] 2022-01-10 2022-01-10 Outpatient ERICKSON_R [facility] [id number] - [place] 03:48:00 03:48:00 228 Commun i ty Hospita l Clinics 2022-01-10 2022-01-10 Outpatient Margarita [facility] [id number] 00:00:00 00:00:00 Robert [id number] Esteban [id number] 2022-01-10 2022-01-10 Robert [facility] [place] 00:00:00 00:00:00 [facility] DO: [address] [facility] [place], [place] CLINIC, [address] MARGARITA , Ph. 2021-09-20 2021-09-20 Outpatient ERICKSON_R [facility] [id number] [place] 10:38:00 10:38:00 108 [facility] 2021-09-20 2021-09-20 Outpatient Margarita [facility] [id number] 00:00:00 00:00:00 Robert [id number] Esteban [id number] 2021-09-20 2021-09-20 Robert [facility] [place] [id number] [place] 00:00:00 00:00:00 [facility] DO: [address] [facility], [address] MARGARITA , Ph. [phone] 2021-09-13 2021-09-13 Outpatient ERICKSON_R [facility] - [place] 12:00:00 12:00:00 101 [facility] 2021-09-13 2021-09-13 Outpatient Margarita [facility] [id number] 00:00:00 00:00:00 Robert [id number] Esteban [id number] 2021-09-13 oRbert [facility] [place] [id number] [place] 00:00:00 00:00:00 [facility] [address] a [facility] [address], HOSPITAL Clinic s [place], [place] CLINIC, [address] MARGARITA , Ph. 2021-04-01 2021-04-01 Outpatient Chaparro [facility] [id number] Univers 10:00:00 10:00:00 [facility] 2021-03-30 2021-03-30 [facility] [id number] [facility] 09:00:00 09:00:00 [facility] 2021-03-09 2021-03-09 [facility] [id number] Univers 09:11:03 23:59:00 Encounter [facility] [id number] ity of Surgical [id number] Hany as Specialti [phone] Tn dical es 809 [facility] 2021-03-09 2021-03-09 Office [facility] [id number] Univers 08:58:09 09:13:09 Visit [facility] [id number] it y of Surgical [id number] Hany as Specialti [phone] Me dical es 198 [facility] 2021-03-09 2021-03-09 Outpatient [facility] [id number] Univers 09:00:00 09:00:00 [facility] 2020-09-16 2020-09-16 Outpatient MARGARITA_R [facility] - [place] 06:37:00 06:37:00 104 Commun i ty [facility]osp[facility] Clinics Results This patient has no known results.
[2022-12-15] MEDS ORDERED: NA CHLORIDE 0.9% 1,000 ML ONE (03:58)
[2022-12-15 04:20] LABS: Absolute Lymphocytes (CBC) 1.1 K/uL (0.7-4.9); Hematocrit 36.5 % (36.0-45.0); Lymphocytes % 15.9 % (15.3-44.8); MPV 6.9 fL (7.6-11.3)
[2022-12-15 04:37] LABS: Urine Blood Negative (Negative); Urine Glucose Negative (Negative); Urine Protein Negative (Negative); Urine Specific Gravity 1.015 (1.005-1.030); Urine pH 7.5 (5.0-7.0)
[2022-12-15 04:38] LABS: Albumin 3.6 g/dL (3.4-5.0); Bilirubin Total 0.6 mg/dL (0.2-1.0); Magnesium 2.2 mg/dL (1.6-2.4); Potassium 4.5 mmol/L (3.5-5.1); Protein, Total 7.4 g/dL (6.4-8.2); Thyroid Stimulating Hormone 2.76 uIU/mL (0.358-3.740); Troponin High Sensitivity 28.5 pg/mL (<58.9)
[2022-12-15 04:57] LABS: Urine Bacteria None Seen /HPF (<20); Urine RBC None Seen /HPF (None Seen)
--- NOTE | 2022-12-15 06:08 | ER ---
Nurse's Notes [facility] Name: Marjan Ortiz Age: 87 yrs Sex: Female : 1935 Arrival Date: 12/15/2022 Time: 03:50 Bed 15 Private MD: Diagnosis: Weakness;Hypo-osmolality and hyponatremia Presentation: 12/15 03:50 Chief complaint: Patient states: I was here with all the same symptoms and I was kd3 admitted to the hospital. I was discharged last Monday and I was a bit better and was able to walk. Now I cannot walk anymore and I can't even turn in the bed. Also, I am urinating so much it is keeping me up at night. I need to sleep. It does not hurt to pee. It is just frequent. I also fell some time last Monday and i have a big bruise on my right arm. Coronavirus screen: Vaccine status: Patient reports being unvaccinated. Ebola Screen: No symptoms or risks identified at this time. Initial Sepsis Screen: Does the patient meet any 2 criteria? No. Patient's initial sepsis screen is negative. Does the patient have a suspected source of infection? No. Patient's initial sepsis screen is negative. Risk Assessment: Do you want to hurt yourself or someone else? Patient reports no desire to harm self or others. Onset of symptoms was December 15, 2022. 03:50 Method Of Arrival: EMS: [facility] kd3 03:50 Acuity: STEPHANIE 3 kd3 Triage Assessment: 03:54 General: Appears in no apparent distress. Behavior is cooperative, anxious. Pain: kd3 Denies pain. Historical: - Home Meds: 03:54 montelukast 10 mg oral tab 1 tab once daily [Active]; levothyroxine 50 mcg tab 1 tab kd3 once daily [Active]; amlodipine-benazepril 10-20 mg oral cap 1 cap once daily [Active]; Zoloft 25 mg oral tab 1 tab once daily [Active]; - PMHx: 03:54 depressive disorder; Hypertensive disorder; Hypothyroidism; kd3 - PSHx: 03:54 right knee; kd3 - Immunization history:: Adult Immunizations up to date. - Social history:: Smoking status: Patient denies any tobacco usage or history of. - Family history:: not pertinent. Screenin:59 [facility] ED Fall Risk Assessment (Adult) History of falling in the last 3 months, kd3 including since admission Yes- single mechanical fall (1 pt) Confusion or Disorientation No (0 pts) Intoxicated or Sedated No (0 pts) Impaired Gait Yes (1 pt) Mobility Assist Device Used Yes (1 pt) Altered Elimination No (0 pt) Score/Fall Risk Level 0 - 2 = Low Risk Oriented to surroundings. Abuse screen: Denies threats or abuse. Denies injuries from another. Nutritional screening: No deficits noted. Tuberculosis screening: No symptoms or risk factors identified. Assessment: 05:00 General: Appears uncomfortable, Behavior is anxious. Neuro: Level of Consciousness is kd3 awake, alert, obeys commands, Oriented to person, place, time, situation. Respiratory: Airway is patent Trachea midline Respiratory effort is even, unlabored, Respiratory pattern is regular, symmetrical. Vital Signs: 03:50 BP 173 / 88; Pulse 77; Resp 19; Temp 97.9(O); Pulse Ox 100% on R/A; Weight 57.15 kg; kd3 Height 5 ft. 5 in. (165.10 cm); Pain 0/10; 04:58 BP 182 / 89; Pulse 91; Resp 19; Pulse Ox 98% on R/A; kd3 05:46 BP 175 / 81; Pulse 73; Resp 16; Pulse Ox 99% on R/A; kd3 03:50 Body Mass Index 20.97 (57.15 kg, 165.10 cm) kd3 ED Course: 03:50 Patient arrived in ED. kd3 03:51 Bry Lora MD is Attending Physician. rt 03:54 Triage completed. kd3 03:54 Arm band placed on right wrist. kd3 03:58 Ros Sosa, SHELIA is Primary Nurse. kd3 04:25 CMP Sent. kd3 04:25 Magnesium Sent. kd3 04:25 Troponin High Sensitivity Sent. kd3 04:25 Creatine Phosphokinase Sent. kd3 04:37 UA MICROSCOPIC Sent. kd3 04:38 XRAY Humerus RIGHT In Process Unspecified. EDMS 04:38 Chest Single View XRAY In Process Unspecified. EDMS 04:59 No provider procedures requiring assistance completed. Maintain EMS IV. Dressing kd3 intact. Good blood return noted. Site clean \T\ dry. Gauge \T\ site: 18 G R forearm. 05:00 Patient has correct armband on for positive identification. Placed in gown. Bed in low kd3 position. Side rails up X2. 05:41 Montano cath inserted, using sterile technique, 18 Fr., by me, balloon inflated, to kd3 gravity drainage. 06:08 Uche Castaneda MD is Hospitalizing Provider. rt 06:34 Osmolality, Serum Sent. kd3 06:34 Urine Osmolality Sent. kd3 06:55 Urine Osmolality Sent. kd3 06:55 Osmolality, Serum Sent. kd3 07:43 Patient admitted, IV remains in place. ko1 Administered Medications: 04:03 Drug: NS 0.9% 1000 ml Route: IV; Rate: 1 bolus; Site: right forearm; kd3 06:14 Follow up: Response: No adverse reaction; IV Status: Completed infusion; IV Intake: kd3 1000ml Medication: 05:00 VIS not applicable for this client. kd3 Intake: 06:14 IV: 1000ml; Total: 1000ml. kd3 Output: 05:41 Urine: 700ml (Straight Cath); Total: 700ml. kd3 05:41 Urine: 800ml (Montano); Total: 1500ml. kd3 Outcome: 06:08 Decision to Hospitalize by Provider. rt 07:42 Admitted to Tele room 414. ko1 07:42 Condition: stable 07:42 Instructed on the need for admit. 09:23 Patient left the ED. ko1 Signatures: Dispatcher [employer] Ros Cid RN RN kd3 Linh Abad RN RN ko1 Bry Lora MD MD rt Corrections: (The following items were deleted from the chart) 05:42 04:45 Urine 450, (Straight Cath), Output Total 450. kd3 kd3
--- NOTE | 2022-12-15 06:09 | EDPHYS ---
Physician Documentation [facility] Name: Marjan Ortiz Age: 87 yrs Sex: Female : 1935 Arrival Date: 12/15/2022 Time: 03:50 Bed 15 Private MD: ED Physician Bry Lora HPI: 12/15 06:09 This 87 yrs old Female presents to ER via EMS with complaints of Generalized weakness. rt 04:03 Patient with recent admission for generalized weakness with inability to ambulate and rt elevated troponin presents to the ED with progressively worsening generalized weakness. Patient was discharged about a week ago, states that she has had a decline since then, was unable to walk. She reports bruising to her right arm states that it popped when she moved. She denies overt injury. She states that she has difficulty in raising her right arm due to this pain. Denies other acute complaints other than increased urination. Symptoms are moderate in severity, no other aggravating or alleviating factors.. Historical: - Home Meds: 03:54 montelukast 10 mg oral tab 1 tab once daily [Active]; levothyroxine 50 mcg tab 1 tab kd3 once daily [Active]; amlodipine-benazepril 10-20 mg oral cap 1 cap once daily [Active]; Zoloft 25 mg oral tab 1 tab once daily [Active]; - PMHx: 03:54 depressive disorder; Hypertensive disorder; Hypothyroidism; kd3 - PSHx: 03:54 right knee; kd3 - Immunization history:: Adult Immunizations up to date. - Social history:: Smoking status: Patient denies any tobacco usage or history of. - Family history:: not pertinent. ROS: 04:03 Constitutional: Negative for fever, chills, and weight loss, Eyes: Negative for injury, rt pain, redness, and discharge, Cardiovascular: Negative for chest pain, palpitations, and edema, Respiratory: Negative for shortness of breath, cough, wheezing, and pleuritic chest pain, Abdomen/GI: Negative for abdominal pain, nausea, vomiting, diarrhea, and constipation, Skin: Negative for injury, rash, and discoloration, Psych: Negative for depression, anxiety, suicide ideation, homicidal ideation, and hallucinations. 04:03 MS/extremity: Positive for contusion, decreased range of motion, pain. 04:03 Neuro: Positive for weakness, Negative for numbness. Exam: 04:03 Constitutional: This is a well developed, well nourished patient who is awake, alert, rt and in no acute distress. Head/Face: Normocephalic, atraumatic. Chest/axilla: Normal chest wall appearance and motion. Nontender with no deformity. No lesions are appreciated. Cardiovascular: Regular rate and rhythm with a normal S1 and S2. No gallops, murmurs, or rubs. Normal PMI, no JVD. No pulse deficits. Respiratory: Lungs have equal breath sounds bilaterally, clear to auscultation and percussion. No rales, rhonchi or wheezes noted. No increased work of breathing, no retractions or nasal flaring. Abdomen/GI: Soft, non-tender, with normal bowel sounds. No distension or tympany. No guarding or rebound. No evidence of tenderness throughout. Skin: Warm, dry with normal turgor. Normal color with no rashes, no lesions, and no evidence of cellulitis. Psych: Awake, alert, with orientation to person, place and time. Behavior, mood, and affect are within normal limits. 04:03 ENT: Dry mucous membranes. 04:03 ECG was reviewed by the Attending Physician. 04:03 Musculoskeletal/extremity: Bruising about the right humerus, sensation is intact, pulses are 2+.. Vital Signs: 03:50 BP 173 / 88; Pulse 77; Resp 19; Temp 97.9(O); Pulse Ox 100% on R/A; Weight 57.15 kg; kd3 Height 5 ft. 5 in. (165.10 cm); Pain 0/10; 04:58 BP 182 / 89; Pulse 91; Resp 19; Pulse Ox 98% on R/A; kd3 05:46 BP 175 / 81; Pulse 73; Resp 16; Pulse Ox 99% on R/A; kd3 03:50 Body Mass Index 20.97 (57.15 kg, 165.10 cm) kd3 MDM: 03:54 Patient medically screened. rt 06:08 Differential Diagnosis UTI, electrolyte disturbances, muscle wasting. Data reviewed: rt vital signs, nurses notes, old medical records, lab test result(s), EKG, radiologic studies. Management of patient was discussed with the following: Hospitalist: Agrees to admit. I considered the following discharge prescriptions or medication management in the emergency department Medications were administered in the Emergency Department. See MAR. Independent interpretation of the following test(s) in the Emergency Department X-Ray: My interpretation is No identified fracture. External Records Reviewed: Inpatient record: Reviewed recent hospitalization records. Care significantly affected by the following chronic conditions: Hypertension. Response to treatment: There is no appreciated change of the patient's symptoms at this time. 12/15 03:52 Order name: CBC with Diff; Complete Time: 04:49 rt 12/15 03:52 Order name: CMP; Complete Time: 04:49 rt 12/15 03:52 Order name: Magnesium; Complete Time: 04:49 rt 12/15 03:52 Order name: Troponin High Sensitivity; Complete Time: 04:49 rt 12/15 03:52 Order name: TSH; Complete Time: 04:49 rt 12/15 03:52 Order name: UA MICROSCOPIC; Complete Time: 05:00 rt 12/15 04:13 Order name: Creatine Phosphokinase; Complete Time: 04:49 EDMS 12/15 04:38 Order name: Urine Dipstick-Ancillary; Complete Time: 04:49 EDMS 12/15 05:25 Order name: Urine Osmolality la1 12/15 05:31 Order name: Osmolality, Serum la1 12/15 05:46 Order name: SARS RAPID kd3 12/15 07:00 Order name: Basic Metabolic Panel EDMS 12/15 07:00 Order name: Basic Metabolic Panel EDMS 12/15 03:52 Order name: EKG; Complete Time: 03:53 rt 12/15 03:52 Order name: EKG - Nurse/Tech; Complete Time: 04:25 rt 12/15 03:52 Order name: XRAY Humerus RIGHT rt 12/15 03:52 Order name: Chest Single View XRAY rt 12/15 03:52 Order name: Urine Dipstick-Ancillary (obtain specimen); Complete Time: 04:37 rt 12/15 06:59 Order name: Diet Regular; Complete Time: 07:00 kd3 12/15 07:00 Order name: CONS Physician Consult EDMS 12/15 07:00 Order name: Physical Therapy Consult EDMS 12/15 07:00 Order name: Heart Healthy EDMS 12/15 07:00 Order name: Magnesium EDMA 12/15 07:00 Order name: Magnesium EDMS 12/15 07:00 Order name: Phosphorus EDMS 12/15 07:00 Order name: Phosphorus EDMS EC:03 Rate is 79 beats/min. Rhythm is regular, Normal Sinus Rhythm with No ectopy. QRS [place] rt is Normal. IN interval is normal. QRS interval is normal. QT interval is normal. No Q waves. T waves are Normal. No ST changes noted. Administered Medications: 04:03 Drug: NS 0.9% 1000 ml Route: IV; Rate: 1 bolus; Site: right forearm; kd3 06:14 Follow up: Response: No adverse reaction; IV Status: Completed infusion; IV Intake: kd3 1000ml Disposition Summary: 12/15/22 06:08 Hospitalization Ordered Hospitalization Status: Observation rt Provider: Uche Castaneda rt Location: Telemetry/MedSurg (observation) rt Condition: Stable rt Problem: an ongoing problem rt Symptoms: are unchanged rt Bed/Room Type: Standard rt Room Assignment: 414(12/15/22 07:30) lg3 Diagnosis - Weakness rt - Hypo-osmolality and hyponatremia rt Forms: - Medication Reconciliation Form rt - SBAR form rt Signatures: Dispatcher [employer] Yesika Lord, RN RN lg3 Ros Sosa RN RN kd3 Bry Lora MD MD rt Corrections: (The following items were deleted from the chart) 04:13 03:56 CREATINE PHOSPHOKINASE+C.LAB.BRZ ordered. [facility] EDMS 07:30 06:08 rt lg3
[2022-12-15 06:12] LABS: SARS-CoV-2 Antigen Rapid Res Negative (Negative)
--- NOTE | 2022-12-15 06:55 | P.HP ---
Certification for Inpatient Patient admitted to: Inpatient With expected LOS: >2 Midnights Patient will require the following post-hospital care: None Practitioner: I am a practitioner with admitting privileges, knowledge of patient current condition, hospital course, and medical plan of care. Services: Services provided to patient in accordance with Admission requirements found in Title 42 Section 412.3 of the Code of Federal Regulations Patient History Date of Service: 12/15/22 Reason for admission: Hyponatremia History of Present Illness: Ms. Marjan Ortiz is a pleasant 87-year-old female who has a past medical history of hypertension, hypothyroidism, and depression who presents to the [facility] Emergency Department for generalized weakness. She was recently admitted to our hospital from 12/08/2022 to 12/09/2022 for a type II non-ST segment elevation myocardial infarction. Since discharge, she states that her weakness has been progressively worsening. On 12/12/2022, she sustained an injury to her right biceps while using her walker at home. Since then, she has been unable to complete her activities of daily living. She reports significant pain in her right biceps as well as her right knee. She denies any falls or syncope. She denies any obvious inciting or alleviating factors for her weakness. On review of systems, she denies any fevers, chills, headaches, dizziness, chest pain, palpitations, shortness of breath, wheezing, cough, abdominal pain, nausea/vomiting, diarrhea, or any other symptoms. She pr esented to the Emergency Department for further evaluation. Upon presentation, her vital signs were stable. Her laboratory studies were notable for a sodium level of 127. EKG revealed normal sinus rhythm without STEMI criteria. Chest x-ray revealed, "no definite pneumonia." Right humerus x- ray revealed, "no acute findings of the right humerus." In the Emergency Department, she was given 1 L of normal saline. She was admitted to the General Internal Medicine service for further evaluation. Allergies No Known Allergies Allergy (Unverified 12/08/22 20:40) Home medications list reviewed: Yes Home Medications: Amlodipine Besylate/Benazepril [Amlodipine-Benazepril 10-20 mg] 1 each PO DAILY 12/09/22 Aspirin [Adult Low Dose Aspirin EC] 81 mg PO DAILY #30 tab 12/09/22 Levothyroxine Sodium [Levothyroxine] 50 mcg PO DAILY 12/09/22 Melatonin 5 mg PO BEDTIME PRN PRN #30 tab 12/09/22 Montelukast Sodium 10 mg PO DAILY 12/09/22 Sertraline [Zoloft*] 25 mg PO DAILY 12/09/22 - Past Medical/Surgical History Diabetic: Yes -: Depression -: Hypertension -: Hypothyroidism - Family History Father -: Heart disease, Stroke Mother -: Kidney disease - Social History Alcohol use: No CD- Drugs: No Caffeine use: Yes Review of Systems General: Weakness (generalized) Eyes: Unremarkable ENT: Unremarkable Respiratory: Unremarkable Cardiovascular: Unremarkable Gastrointestinal: Unremarkable Genitourinary: Unremarkable Musculoskeletal: Arm Pain (right), Leg Pain (right knee) Integumentary: Bruising (right arm) Neurological: Weakness Physical Examination - Vital Signs Temperature: 97.9 F Blood Pressure: 175/81 Pulse: 73 Respirations: 16 Pulse Ox (%): 99 (room air) - Physical Exam General: Alert, In no apparent distress, Oriented x3 HEENT: Atraumatic, PERRLA, Mucous membr. moist/pink, EOMI, Sclerae nonicteric Neck: JVD not distended Respiratory: Clear to auscultation bilaterally, Normal air movement Cardiovascular: No edema, Regular rate/rhythm, Normal S1 S2, No gallops, No rubs, No murmurs Gastrointestinal: Normal bowel sounds, Soft and benign, Non-distended, No tenderness, No rebound, No guarding Musculoskeletal: Other (bruising in right biceps region with palpable bulge. She is unable to flex her right arm. Right knee is tender to palpation, without erythema or obvious effusion) Integumentary: Other (brusing right biceps region) Neurological: Normal speech, Cranial nerves 3-12 intact, Normal affect - Studies Laboratory Data (last 24 hrs) 12/15/22 04:01: Sodium 127 L, Potassium 4.5, BUN 13, Creatinine 0.73, Glucose 122 H, Magnesium 2.2, Total Bilirubin 0.6, AST 27, ALT 47, Alkaline Phosphatase 74 12/15/22 04:01: WBC 7.00, Hgb 12.1, Hct 36.5, Plt Count 366 Assessment and Plan - Plan # Generalized Weakness Suspect due to Hypovolemic Hyponatremia # Depression Differential diagnoses include, but are not limited, hypovolemic hyponatremia from inadequate oral intake +/- sertraline-induced hyponatremia. - Consulted Nephrology and spoke with Dr. Joe - recommendations appreciated - Evaluation thus far: - Serum Osm = 267 - CK = 221 - TSH = 2.760 - Trop = 28.5 - Chest x-ray = "no definite pneumonia." - Management plan: - S/P 1 L Normal Saline in ED - Started Normal Saline @ 50 mL/hr - Serial BMP - Obtain PT consultation - Hold home sertraline # Right Arm Injury, concern for Ruptured Biceps Tendon - She reports inability to flex her right arm after hearing a "pop" on 12/12/2022 while using her walker - Right humerus x-ray = "no acute findings of the right humerus" - Placed right arm in sling - Requested MRI of right biceps - If positive for acute pathology, will consult Orthopedic Surgery - PRN hydrocodone-acetaminophen # Suspect Right Knee Osteoarthritis - Reports chronic right knee pain, which is uncontrolled - Denies any trauma to knee - Ordered right knee x-ray - PRN topical lidocaine # Hypertension - Continue home amlodipine-benazepril # Hypothyroidism - TSH 2.760 - Continue home levothyroxine # Seasonal Allergies - Continue home montelukast Uche Castaneda M.D. Plan to discharge in: Greater than 2 days - Advance Directives Does patient have a Living Will: Yes Does patient have a Durable POA for Healthcare: No - Code Status/Comfort Care Code Status Assessed: Yes Code Status: Full Code
[2022-12-15] MEDS: LIDOCAINE 5% OINT 30 GM TUBE TOP SCH ×2 (08:40→21:00)
[2022-12-15] MEDS: ENOXAPARIN 40 MG/0.4 ML SQ SCH (08:40)
[2022-12-15] MEDS ORDERED: ENOXAPARIN 40 MG/0.4 ML SQ ONE (08:46)
--- NOTE | 2022-12-15 09:00 | P.CNS ---
Date of Consult: 12/15/22 Reason for Consult: Hyponatremia Requesting Physician: Uche Castaneda Chief Complaint: Weakness History of Present Illness: 04:03 Patient with recent admission for generalized weakness with inability to ambulate and rt elevated troponin presents to the ED with progressively worsening generalized weakness. Patient was discharged about a week ago, states that she has had a decline since then, was unable to walk. She reports bruising to her right arm states that it popped when she moved. She denies overt injury. She states that she has difficulty in raising her right arm due to this pain. Denies other acute complaints other than increased urination. Symptoms are moderate in severity, no other aggravating or alleviating factors. Allergies No Known Allergies Allergy (Unverified 12/08/22 20:40) Home medications list reviewed: Yes Home Medications: Amlodipine Besylate/Benazepril [Amlodipine-Benazepril 10-20 mg] 1 each PO DAILY 12/09/22 Aspirin [Adult Low Dose Aspirin EC] 81 mg PO DAILY #30 tab 12/09/22 Levothyroxine Sodium [Levothyroxine] 50 mcg PO DAILY 12/09/22 Montelukast Sodium 10 mg PO DAILY 12/09/22 Sertraline [Zoloft*] 25 mg PO DAILY 12/09/22 - Past Medical/Surgical History -: Depression -: Hypertension -: Hypothyroidism -: Hyponatremia (Dr. Joe) - Family History Father Medical History: Heart disease, Stroke Mother Medical History: Kidney disease - Social History Alcohol use: No CD- Drugs: No Caffeine use: Yes Review of Systems 10-point ROS is otherwise unremarkable General: Weakness, Malaise Musculoskeletal: Arm Pain Neurological: Weakness Physical Examination Temp Pulse Resp BP Pulse Ox 97.4 F 73 16 150/69 H 99 12/15/22 08:00 12/15/22 08:00 12/15/22 08:00 12/15/22 08:00 12/15/22 08:00 General: Oriented x3, Cooperative HEENT: Atraumatic Neck: Supple Respiratory: Clear to auscultation bilaterally Cardiovascular: No edema, Regular rate/rhythm Gastrointestinal: Soft and benign, Non-distended Musculoskeletal: No clubbing, No contractures Integumentary: No rashes, No cyanosis Neurological: Normal speech Laboratory Data (last 24 hrs) 12/15/22 04:01: Sodium 127 L, Potassium 4.5, BUN 13, Creatinine 0.73, Glucose 122 H, Magnesium 2.2, Total Bilirubin 0.6, AST 27, ALT 47, Alkaline Phosphatase 74 12/15/22 04:01: WBC 7.00, Hgb 12.1, Hct 36.5, Plt Count 366 Imagings Data: [facility] EXAM DESCRIPTION: RAD - Chest Single View - 12/15/2022 4:36 am CLINICAL HISTORY: Weakness COMPARISON: None. TECHNIQUE: XR CHEST 1 VIEW 12/15/2022 3:52 AM [employer] FINDINGS: The heart is mildly enlarged. Lungs are clear without consolidation, atelectasis, mass or edema. There are small pleural effusions bilaterally. There is no pneumothorax. There are no acute osseous findings. IMPRESSION: No definite pneumonia. Conclusions/Impression: Hypovolemic Hyponatremia -Continue gentle IVF with NS -NaCl tab X2 HTN -Continue Amlodipine & Benazepril Hyperglycemia -Check A1C RUE pain -Ortho evaluation prn Case reviewed with Dr. Castaneda Thank you kindly for the consultation
[2022-12-15 10:06] VITALS: BMI 20.9
[2022-12-15] MEDS: NA CHLORIDE 0.9% 1,000 ML IV SCH (10:27)
[2022-12-15] MEDS: SODIUM CHLORIDE 1 GM TAB PO SCH ×2 (10:30→12:50)
[2022-12-15] MEDS ORDERED: INFLUENZA VACCINE (for 6+ mo) 0.5 ML DOSE IMVAC ONE (11:00)
[2022-12-15] MEDS ORDERED: PNEUMOCOCCAL VACCINE 0.5 ML IMVAC ONE (11:00)
--- NOTE | 2022-12-15 13:19 | RAD REPORT ---
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 A small amount of s uprapatellar joint fluid. No acute fracture.
--- NOTE | 2022-12-15 14:16 | RAD REPORT ---
EXAM DESCRIPTION: RAD - Chest Single View - 12/15/2022 4:36 am CLINICAL HISTORY: Weakness COMPARISON: None. TECHNIQUE: XR CHEST 1 VIEW 12/15/2022 3:52 AM SUPERVISOR ENGINE ASSEMBLY FINDINGS: The heart is mildly enlarged. Lungs are clear without consolidation, atelectasis, mass or edema. There are small pleural effusions bilaterally. There is no pneumothorax. There are no acute os seous findings. IMPRESSION: No definite pneumonia. Electronically signed by: Javier Easley MD 12/15/2022 4:49 AM SUPERVISOR ENGINE ASSEMBLY Due to temporary technical issues with the PACS/Fluency reporting system, reports are being signed by the in house radiologists without review as a courtesy to insure prompt reporting. The interpreting radiologist is fully responsible for the content of the report.
--- NOTE | 2022-12-15 14:18 | RAD REPORT ---
EXAM DESCRIPTION: RAD - Humerus Right - 12/15/2022 4:36 am COMPARISON: None. CLINICAL HISTORY: [facility] MAIN PAIN Humerus Right FINDINGS: 2 views of the right humerus demonstrate no acute fracture or dislocation. No significant joint effusion. Soft tissues are unremarkable. IMPRESSION: No acute findings of the right humerus. Electronically signed by: Alexis Montague MD 12/15/2022 4:52 AM GROUNDING ENGINEER Due to temporary technical issues with the PACS/Fluency reporting system, reports are being signed by the in house radiologists without review as a courtesy to insure prompt reporting. The interpreting radiologist is fully responsible for the content of the report.
[2022-12-15 14:20] LABS: Potassium 4.6 mmol/L (3.5-5.1)
[2022-12-15] MEDS: MONTELUKAST 10 MG TAB PO SCH (18:31)
[2022-12-16] MEDS: HYDROCODONE/APAP 5/325 MG TAB PO PRN ×2 (04:00→15:07)
[2022-12-16 04:44] LABS: Phosphorus 2.6 mg/dL (2.5-4.9); Potassium 4.3 mmol/L (3.5-5.1); Uric Acid 3.1 mg/dL (2.6-6.0)
[2022-12-16] MEDS: NA CHLORIDE 0.9% 1,000 ML IV SCH (06:18)
[2022-12-16] MEDS: LEVOTHYROXINE SOD 0.05 MG TABLET PO SCH (06:19)
[2022-12-16] MEDS: BENAZEPRIL 20 MG TAB PO SCH (08:38)
[2022-12-16] MEDS: ENOXAPARIN 40 MG/0.4 ML SQ SCH (08:39)
[2022-12-16] MEDS: AMLODIPINE 10 MG TAB PO SCH (08:39)
[2022-12-16] MEDS: MONTELUKAST 10 MG TAB PO SCH (08:39)
[2022-12-16] MEDS: ASPIRIN EC 81 MG TAB PO SCH (08:39)
[2022-12-16] MEDS: LIDOCAINE 5% OINT 30 GM TUBE TOP SCH ×2 (08:39→20:40)
[2022-12-16] MEDS ORDERED: HOME MED 1 EA UNK (Levothyroxine Sodium [Levothyroxine] 50 MCG Capsule) PO SCH (09:00)
--- NOTE | 2022-12-16 10:35 | P.PN ---
Subjective Date of Service: 12/16/22 Chief Complaint: Weakness No acute events overnight. MRI was not completed due to pain. She was able to ambulate 50 feet with PT. She states that her weakness is still present, but has slightly improved compared to yesterday. Review of Systems 10-point ROS is otherwise unremarkable General: Weakness (generalized) Musculoskeletal: Arm Pain (right) Physical Examination - Vital Signs Temperature: 98.2 F Blood Pressure: 145/70 Pulse: 70 Respirations: 16 Pulse Ox (%): 97 Assessment And Plan - Plan - Physical Exam General: Alert, In no apparent distress, Oriented x3 HEENT: Atraumatic, Mucous membr. moist/pink, Sclerae nonicteric Neck: JVD not distended Respiratory: Clear to auscultation bilaterally, Normal air movement Cardiovascular: No edema, Regular rate/rhythm, Normal S1 S2, No gallops, No rubs, No murmurs Gastrointestinal: Normal bowel sounds, Soft and benign, Non-distended, No tenderness, No rebound, No guarding Musculoskeletal: Other (bruising in right biceps region with palpable bulge. She is able to flex her right arm today with significant effort. Right knee is tender to palpation, without erythema or obvious effusion) Integumentary: Other (brusing right biceps region) Neurological: Normal speech, Normal affect # Generalized Weakness Suspect due to Hypovolemic Hyponatremia (improving) # Depression Differential diagnoses include, but are not limited, hypovolemic hyponatremia from inadequate oral intake +/- sertraline-induced hyponatremia. - Evaluation thus far: - Serum Osm = 267 - CK = 221 - TSH = 2.760 - Trop = 28.5 - Chest x-ray = "no definite pneumonia." - Management plan: - Consulted Nephrology and spoke with Dr. Joe - recommendations appreciated - S/P 1 L Normal Saline in ED - Started Normal Saline @ 50 mL/hr - PT/OT consultation - Hold home sertraline # Right Arm Injury, concern for Ruptured Biceps Tendon - Consulted Orthopedic Surgery and spoke with Dr. 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 A small amount of suprapatellar joint fluid. No acute fracture." - PRN topical lidocaine, hydrocodone-acetaminophen # Hypertension - Continue home amlodipine-benazepril # Hypothyroidism - TSH 2.760 - Continue home levothyroxine # Seasonal Allergies - Continue home montelukast Uche Castaneda M.D.
[2022-12-16] MEDS: LACTOBACILLUS/ACIDOPHILUS TAB PO SCH (20:39)
--- NOTE | 2022-12-16 22:21 | P.PN ---
Date of Service: 12/16/22 Vital Signs Temp Pulse Resp BP Pulse Ox 98.6 F 73 16 131/69 97 12/16/22 16:00 12/16/22 16:00 12/16/22 16:00 12/16/22 16:00 12/16/22 16:00 Medications Hydrocodone Bitart/Acetaminophen (Hydrocodone/Apap 5/325 Mg Tab) 1 tab PO Q6H PRN PRN Reason: Pain scale 5-7 (Moderate) Last Admin: 12/16/22 15:07 Dose: 1 tab Amlodipine Besylate (Amlodipine 10 Mg Tab) 10 mg PO DAILY [facility] Last Admin: 12/16/22 08:39 Dose: 10 mg Aspirin (Aspirin Ec 81 Mg Tab) 81 mg PO DAILY [facility] Last Admin: 12/16/22 08:39 Dose: 81 mg Benazepril HCl (Benazepril 20 Mg Tab) 20 mg PO DAILY [facility] Last Admin: 12/16/22 08:38 Dose: 20 mg Enoxaparin Sodium (Enoxaparin 40 Mg/0.4 Ml) 40 mg SQ DAILY [facility] Last Admin: 12/16/22 08:39 Dose: 40 mg Sodium Chloride (Ns 1000 Ml Ivbag) 1,000 mls @ 50 mls/hr IV .Q20H [facility] Last Admin: 12/16/22 06:18 Dose: 1,000 mls Lactobacillus Acidoph/Bulgaricus (Lactobacillus/Acidophilus Tab) 1 tab PO BID [facility] Last Admin: 12/16/22 20:39 Dose: 1 tab Levothyroxine Sodium (Levothyroxine Sod 0.05 Mg Tablet) 0.05 mg PO DAILYAC [facility] Last Admin: 12/16/22 06:19 Dose: 0.05 mg Lidocaine HCl (Lidocaine 5% Oint 30 Gm Tube) 1 appl TOP BID [facility] Last Admin: 12/16/22 20:40 Dose: 1 appl Montelukast Sodium (Montelukast 10 Mg Tab) 10 mg PO DAILY [facility] Last Admin: 12/16/22 08:39 Dose: 10 mg Multivitamins/Minerals (Multivitamin Tab) 1 tab PO DAILY [facility] Sodium Chloride (Flush Normal Saline 10 Ml) 10 ml IV BID [facility] Last Admin: 12/16/22 20:44 Dose: 10 ml Assessment/ Plan: Nephrology No dyspnea No chest pain Fair appetite. +BM No acute events overnight Vitals, medications, blood work and imaging reviewed in the chart. General: Oriented x3, Cooperative HEENT: Atraumatic Neck: Supple Respiratory: Clear to auscultation bilaterally Cardiovascular: No edema, Regular rate/rhythm Gastrointestinal: Soft and benign, Non-distended Musculoskeletal: No clubbing, No contractures Integumentary: No rashes, No cyanosis Neurological: Normal speech [facility] Data (last 24 hrs) 12/15/22 04:01: Sodium 127 L, Potassium 4.5, BUN 13, Creatinine 0.73, Glucose 122 H, Magnesium 2.2, Total Bilirubin 0.6, AST 27, ALT 47, Alkaline Phosphatase 74 12/15/22 04:01: WBC 7.00, Hgb 12.1, Hct 36.5, Plt Count 366 Imagings Data: [employer] EXAM DESCRIPTION: RAD - Chest Single View - 12/15/2022 4:36 am CLINICAL HISTORY: Weakness COMPARISON: None. 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 Lungs are clear without consolidation, atelectasis, mass or edema. There are small pleural effusions bilaterally. There is no pneumothorax. There are no acute osseous findings. IMPRESSION: No definite pneumonia. Conclusions/Impression: Hypovolemic Hyponatremia -Continue gentle IVF with NS; consider stopping IVF if the sodium worsens -Encourage nutrition HTN -Continue Amlodipine & Benazepril Hyperglycemia A1C 5.5 -No sugar diet RUE pain -Ortho evaluation prn Debility/ Weakness -PT as tolerated Case reviewed with Dr. Castaneda
[2022-12-17] MEDS: NA CHLORIDE 0.9% 1,000 ML IV SCH (02:00)
[2022-12-17 04:32] LABS: Potassium 4.2 mmol/L (3.5-5.1)
[2022-12-17] MEDS: LEVOTHYROXINE SOD 0.05 MG TABLET PO SCH (07:14)
[2022-12-17] MEDS: BENAZEPRIL 20 MG TAB PO SCH (08:34)
[2022-12-17] MEDS: AMLODIPINE 10 MG TAB PO SCH (08:34)
[2022-12-17] MEDS: MONTELUKAST 10 MG TAB PO SCH (08:35)
[2022-12-17] MEDS: LACTOBACILLUS/ACIDOPHILUS TAB PO SCH ×2 (08:35→20:39)
[2022-12-17] MEDS: ASPIRIN EC 81 MG TAB PO SCH (08:35)
[2022-12-17] MEDS: LIDOCAINE 5% OINT 30 GM TUBE TOP SCH ×2 (08:35→20:39)
[2022-12-17] MEDS: MULTIVITAMIN TAB PO SCH (08:35)
[2022-12-17] MEDS: ENOXAPARIN 40 MG/0.4 ML SQ SCH (08:35)
[2022-12-17] MEDS: SODIUM CHLORIDE 1 GM TAB PO SCH ×3 (08:38→16:29)
--- NOTE | 2022-12-17 16:24 | P.PN ---
Subjective Date of Service: 12/17/22 Chief Complaint: Weakness No acute events overnight. She is doing well this morning and her pain is well- controlled. She continues to endorse generalized weakness. CM is assisting with possible SNF placement. Review of Systems 10-point ROS is otherwise unremarkable General: Weakness (generalized) Musculoskeletal: Arm Pain (right arm) Physical Examination - Vital Signs Temperature: 99.7 F Blood Pressure: 142/77 Pulse: 85 Respirations: 18 Pulse Ox (%): 98 Assessment And Plan - Plan - Physical Exam General: Alert, In no apparent distress, Oriented x3 HEENT: Atraumatic, Sclerae nonicteric Neck: JVD not distended Respiratory: Clear to auscultation bilaterally, Normal air movement Cardiovascular: No edema, Regular rate/rhythm, No murmurs Gastrointestinal: Normal bowel sounds, Soft and benign, Non-distended, No tenderness, No rebound, No guarding Musculoskeletal: Other (bruising in right biceps region with palpable bulge. She is able to flex her right arm today with significant effort.) Integumentary: Other (brusing right biceps region - improving) Neurological: Normal speech, Normal affect # Generalized Weakness Suspect due to Hypovolemic Hyponatremia (improving) # Depression Differential diagnoses include, but are not limited, hypovolemic hyponatremia from inadequate oral intake +/- sertraline-induced hyponatremia. - Evaluation thus far: - Serum Osm = 267 - CK = 221 - TSH = 2.760 - Trop = 28.5 - Chest x-ray = "no definite pneumonia." - Management plan: - Consulted Nephrology and spoke with Dr. Joe - recommendations appreciated - S/P 1 L Normal Saline in ED - Started Normal Saline @ 50 mL/hr - PT/OT consultation - Plan for SNF placement - CM assistance appreciated - Hold home sertraline # Right Arm Injury, concern for Ruptured Biceps Tendon - Consulted Orthopedic Surgery and spoke with Dr. 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 A small amount of suprapatellar joint fluid. No acute fracture." - PRN topical lidocaine, hydrocodone-acetaminophen # Hypertension - Continue home amlodipine-benazepril # Hypothyroidism - TSH 2.760 - Continue home levothyroxine # Seasonal Allergies - Continue home montelukast Uche Castaneda M.D.
[2022-12-17] MEDS: HYDROCODONE/APAP 5/325 MG TAB PO PRN (20:38)
--- NOTE | 2022-12-17 21:34 | P.PN ---
Date of Service: 12/17/22 Vital Signs Temp Pulse Resp BP Pulse Ox 99.7 F 85 18 142/77 H 96 12/17/22 16:27 12/17/22 16:27 12/17/22 20:38 12/17/22 16:27 12/17/22 20:38 Medications Hydrocodone Bitart/Acetaminophen (Hydrocodone/Apap 5/325 Mg Tab) 1 tab PO Q6H PRN PRN Reason: Pain scale 5-7 (Moderate) Last Admin: 12/17/22 20:38 Dose: 1 tab Amlodipine Besylate (Amlodipine 10 Mg Tab) 10 mg PO DAILY [facility] Last Admin: 12/17/22 08:34 Dose: 10 mg Aspirin (Aspirin Ec 81 Mg Tab) 81 mg PO DAILY [facility] Last Admin: 12/17/22 08:35 Dose: 81 mg Benazepril HCl (Benazepril 20 Mg Tab) 20 mg PO DAILY [facility] Last Admin: 12/17/22 08:34 Dose: 20 mg Enoxaparin Sodium (Enoxaparin 40 Mg/0.4 Ml) 40 mg SQ DAILY [facility] Last Admin: 12/17/22 08:35 Dose: 40 mg Lactobacillus Acidoph/Bulgaricus (Lactobacillus/Acidophilus Tab) 1 tab PO BID [facility] Last Admin: 12/17/22 20:39 Dose: 1 tab Levothyroxine Sodium (Levothyroxine Sod 0.05 Mg Tablet) 0.05 mg PO DAILYAC [facility] Last Admin: 12/17/22 07:14 Dose: 0.05 mg Lidocaine HCl (Lidocaine 5% Oint 30 Gm Tube) 1 appl TOP BID [facility] Last Admin: 12/17/22 20:39 Dose: 1 appl Montelukast Sodium (Montelukast 10 Mg Tab) 10 mg PO DAILY [facility] Last Admin: 12/17/22 08:35 Dose: 10 mg Multivitamins/Minerals (Multivitamin Tab) 1 tab PO DAILY [facility] Last Admin: 12/17/22 08:35 Dose: 1 tab Sodium Chloride (Flush Normal Saline 10 Ml) 10 ml IV BID [facility] Last Admin: 12/17/22 20:39 Dose: 10 ml Sodium Chloride (Sodium Chloride 1 Gm Tab) 1 gm PO TIDWM [facility] Last Admin: 12/17/22 16:29 Dose: 1 gm Assessment/ Plan: Nephrology No dyspnea No chest pain Fair appetite Knee pain No acute events overnight Vitals, medications, blood work and imaging reviewed in the chart. General: Oriented x3, Cooperative HEENT: Atraumatic Neck: Supple Respiratory: Clear to auscultation bilaterally Cardiovascular: No edema, Regular rate/rhythm Gastrointestinal: Soft and benign, Non-distended Musculoskeletal: No clubbing, No contractures Integumentary: No rashes, No cyanosis Neurological: Normal speech [facility] Data (last 24 hrs) 12/15/22 04:01: Sodium 127 L, Potassium 4.5, BUN 13, Creatinine 0.73, Glucose 122 H, Magnesium 2.2, Total Bilirubin 0.6, AST 27, ALT 47, Alkaline Phosphatase 74 12/15/22 04:01: WBC 7.00, Hgb 12.1, Hct 36.5, Plt Count 366 Imagings Data: EXAM DESCRIPTION: RAD - Chest Single View - 12/15/2022 4:36 am CLINICAL HISTORY: Weakness COMPARISON: None. 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 Lungs are clear without consolidation, atelectasis, mass or edema. There are small pleural effusions bilaterally. There is no pneumothorax. There are no acute osseous findings. IMPRESSION: No definite pneumonia. Conclusions/Impression: Hypovolemic Hyponatremia -Discontinue IVF -Start sodium tablets due to limited oral intake -Encourage nutrition HTN -Continue Amlodipine & Benazepril Hyperglycemia A1C 5.5 -No sugar diet RUE pain -Ortho evaluation prn Debility/ Weakness -PT as tolerated Case reviewed with Dr. Castaneda
[2022-12-18 04:58] LABS: Phosphorus 2.9 mg/dL (2.5-4.9); Potassium 4.2 mmol/L (3.5-5.1); Uric Acid 3.4 mg/dL (2.6-6.0)
[2022-12-18 05:38] LABS: Specific Gravity 1.012 (1.005-1.030); Urine Bacteria <20 /HPF (<20); Urine Bilirubin NEGATIVE (Negative); Urine Blood Negative (Negative); Urine Clarity Turbid (Clear); Urine Color Light-Yellow (Yellow); Urine Glucose NEGATIVE (Negative); Urine Mucus Slight /HPF (None Seen); Urine Protein NEGATIVE (Negative); Urine Urobilinogen Normal (Normal); Urine pH 6.5 (5.0-7.0)
[2022-12-18] MEDS: LEVOTHYROXINE SOD 0.05 MG TABLET PO SCH (05:53)
[2022-12-18] MEDS: ENOXAPARIN 40 MG/0.4 ML SQ SCH (07:48)
[2022-12-18] MEDS: SODIUM CHLORIDE 1 GM TAB PO SCH ×3 (07:49→16:11)
[2022-12-18] MEDS: LACTOBACILLUS/ACIDOPHILUS TAB PO SCH ×2 (07:49→20:49)
[2022-12-18] MEDS: MULTIVITAMIN TAB PO SCH (07:49)
[2022-12-18] MEDS: ASPIRIN EC 81 MG TAB PO SCH (07:49)
[2022-12-18] MEDS: MONTELUKAST 10 MG TAB PO SCH (07:50)
[2022-12-18] MEDS: AMLODIPINE 10 MG TAB PO SCH (07:50)
[2022-12-18] MEDS: LIDOCAINE 5% OINT 30 GM TUBE TOP SCH ×2 (07:50→20:49)
[2022-12-18] MEDS: BENAZEPRIL 20 MG TAB PO SCH (07:51)
[2022-12-18] MEDS ORDERED: CETIRIZINE HCL 5 MG TABLET PO PRN (08:15)
[2022-12-18] MEDS ORDERED: FLUTICASONE 50MCG NASAL SPRAY NAS PRN (08:17)
[2022-12-18] MEDS: HYDROCODONE/APAP 5/325 MG TAB PO PRN (14:50)
--- NOTE | 2022-12-18 18:29 | P.PN ---
Date of Service: 12/18/22 Vital Signs Temp Pulse Resp BP Pulse Ox 98.5 F 68 16 117/63 96 12/18/22 16:00 12/18/22 16:00 12/18/22 16:00 12/18/22 16:00 12/18/22 16:00 Medications Hydrocodone Bitart/Acetaminophen (Hydrocodone/Apap 5/325 Mg Tab) 1 tab PO Q6H PRN PRN Reason: Pain scale 5-7 (Moderate) Last Admin: 12/18/22 14:50 Dose: 1 tab Amlodipine Besylate (Amlodipine 10 Mg Tab) 10 mg PO DAILY [facility] Last Admin: 12/18/22 07:50 Dose: 10 mg Aspirin (Aspirin Ec 81 Mg Tab) 81 mg PO DAILY [facility] Last Admin: 12/18/22 07:49 Dose: 81 mg Benazepril HCl (Benazepril 20 Mg Tab) 20 mg PO DAILY [facility] Last Admin: 12/18/22 07:51 Dose: 20 mg Cetirizine HCl (Cetirizine Hcl 5 Mg Tablet) 10 mg PO DAILY PRN PRN Reason: ALLERGIES Last Admin: 12/18/22 09:27 Dose: 10 mg Enoxaparin Sodium (Enoxaparin 40 Mg/0.4 Ml) 40 mg SQ DAILY [facility] Last Admin: 12/18/22 07:48 Dose: 40 mg Fluticasone Propionate (Fluticasone 50mcg Nasal [place]) 1 sprays [facility] DAILY PRN PRN Reason: NASAL CONGESTION Lactobacillus Acidoph/Bulgaricus (Lactobacillus/Acidophilus Tab) 1 tab PO BID [facility] Last Admin: 12/18/22 07:49 Dose: 1 tab Levothyroxine Sodium (Levothyroxine Sod 0.05 Mg Tablet) 0.05 mg PO DAILYAC [facility] Last Admin: 12/18/22 05:53 Dose: 0.05 mg Lidocaine HCl (Lidocaine 5% Oint 30 Gm Tube) 1 appl TOP BID [facility] Last Admin: 12/18/22 07:50 Dose: 1 appl Montelukast Sodium (Montelukast 10 Mg Tab) 10 mg PO DAILY [facility] Last Admin: 12/18/22 07:50 Dose: 10 mg Multivitamins/Minerals (Multivitamin Tab) 1 tab PO DAILY [facility] Last Admin: 12/18/22 07:49 Dose: 1 tab Sodium Chloride (Flush Normal Saline 10 Ml) 10 ml IV BID [facility] Last Admin: 12/18/22 07:51 Dose: 10 ml Sodium Chloride (Sodium Chloride 1 Gm Tab) 1 gm PO TIDWM [facility] Last Admin: 12/18/22 16:11 Dose: 1 gm Assessment/ Plan: Nephrology No dyspnea No chest pain Fair appetite Knee pain improved No acute events overnight Vitals, medications, blood work and imaging reviewed in the chart. General: Oriented x3, Cooperative HEENT: Atraumatic Neck: Supple Respiratory: Clear to auscultation bilaterally Cardiovascular: No edema, Regular rate/rhythm Gastrointestinal: Soft and benign, Non-distended Musculoskeletal: No clubbing, No contractures Integumentary: No rashes, No cyanosis Neurological: Normal speech [facility] Data (last 24 hrs) 12/15/22 04:01: Sodium 127 L, Potassium 4.5, BUN 13, Creatinine 0.73, Glucose 122 H, Magnesium 2.2, Total Bilirubin 0.6, AST 27, ALT 47, Alkaline Phosphatase 74 12/15/22 04:01: WBC 7.00, Hgb 12.1, Hct 36.5, Plt Count 366 Imagings Data: EXAM DESCRIPTION: RAD - Chest Single View - 12/15/2022 4:36 am CLINICAL HISTORY: Weakness COMPARISON: None. 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 Lungs are clear without consolidation, atelectasis, mass or edema. There are small pleural effusions bilaterally. There is no pneumothorax. There are no acute osseous findings. IMPRESSION: No definite pneumonia. Conclusions/Impression: Hypovolemic Hyponatremia, resolved Euvolemic Hyponatremia suspicious for SIADH -Continue sodium tablets due to limited oral intake and encourage nutrition -Caution with excess fluid intake HTN -Continue Amlodipine & Benazepril Hyperglycemia A1C 5.5 -No sugar diet RUE pain -Ortho evaluation prn Debility/ Weakness -PT as tolerated Case reviewed with Dr. Castaneda Consider removing mack soon
--- NOTE | 2022-12-18 18:33 | P.PN ---
Subjective Date of Service: 12/18/22 Chief Complaint: Weakness No acute events overnight. She is doing well this morning and her pain is well- controlled. She continues to endorse generalized weakness. Her only concern this morning is allergic rhinitis. She requests an antihistamine for her symptoms. She is pending SNF placement, which is unlikely to occur over the weekend. Review of Systems 10-point ROS is otherwise unremarkable General: Weakness (generalized) ENT: Nose Discharge Physical Examination - Vital Signs Temperature: 98.5 F Blood Pressure: 117/63 Pulse: 68 Respirations: 16 Pulse Ox (%): 96 Assessment And Plan - Plan - Physical Exam General: Alert, In no apparent distress, Oriented x3 HEENT: Atraumatic, Sclerae nonicteric Neck: JVD not distended Respiratory: Clear to auscultation bilaterally, Normal air movement Cardiovascular: No edema, Regular rate/rhythm, No murmurs Gastrointestinal: Normal bowel sounds, Soft and benign, Non-distended, No tenderness, No rebound, No guarding Musculoskeletal: Other (bruising in right biceps region with palpable bulge. She is able to flex her right arm today with moderate effort.) Integumentary: Other (brusing right biceps region - improving) Neurological: Normal speech, Normal affect # Generalized Weakness Suspect due to Hypovolemic Hyponatremia (improving) # Depression Differential diagnoses include, but are not limited, hypovolemic hyponatremia from inadequate oral intake +/- sertraline-induced hyponatremia. - Evaluation thus far: - Serum Osm = 267 - CK = 221 - TSH = 2.760 - Trop = 28.5 - Chest x-ray = "no definite pneumonia." - Management plan: - Consulted Nephrology and spoke with Dr. oJe - recommendations appreciated - S/P 1 L Normal Saline in ED - Started Normal Saline @ 50 mL/hr - PT/OT consultation - Plan for SNF placement - CM assistance appreciated - Hold home sertraline # Right Arm Injury, concern for Ruptured Biceps Tendon - Consulted Orthopedic Surgery and spoke with Dr. 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 A small amount of suprapatellar joint fluid. No acute fracture." - PRN topical lidocaine, hydrocodone-acetaminophen # Hypertension - Continue home amlodipine-benazepril # Hypothyroidism - TSH 2.760 - Continue home levothyroxine # Seasonal Allergies with Allergic Rhinitis - Continue home montelukast - Started PRN cetirizine with PRN nasal fluticasone Uche Castaneda M.D.
[2022-12-19] MEDS: HYDROCODONE/APAP 5/325 MG TAB PO PRN ×3 (01:06→22:36)
[2022-12-19] MEDS: LEVOTHYROXINE SOD 0.05 MG TABLET PO SCH (05:58)
[2022-12-19] MEDS: BENAZEPRIL 20 MG TAB PO SCH (10:33)
[2022-12-19] MEDS: MONTELUKAST 10 MG TAB PO SCH (10:33)
[2022-12-19] MEDS: SODIUM CHLORIDE 1 GM TAB PO SCH ×3 (10:33→17:56)
[2022-12-19] MEDS: ENOXAPARIN 40 MG/0.4 ML SQ SCH (10:33)
[2022-12-19] MEDS: LIDOCAINE 5% OINT 30 GM TUBE TOP SCH ×2 (10:34→21:24)
[2022-12-19] MEDS: ASPIRIN EC 81 MG TAB PO SCH (10:34)
[2022-12-19] MEDS: LACTOBACILLUS/ACIDOPHILUS TAB PO SCH ×2 (10:34→21:24)
[2022-12-19] MEDS: MULTIVITAMIN TAB PO SCH (10:34)
[2022-12-19] MEDS: AMLODIPINE 10 MG TAB PO SCH (10:34)
--- NOTE | 2022-12-19 10:44 | P.PN ---
Date of Service: 12/19/22 Vital Signs Temp Pulse Resp BP Pulse Ox 98.9 F 798 H 14 144/67 H 98 12/19/22 08:00 12/19/22 10:34 12/19/22 08:00 12/19/22 10:34 12/19/22 08:00 Medications Hydrocodone Bitart/Acetaminophen (Hydrocodone/Apap 5/325 Mg Tab) 1 tab PO Q6H PRN PRN Reason: Pain scale 5-7 (Moderate) Last Admin: 12/19/22 01:06 Dose: 1 tab Amlodipine Besylate (Amlodipine 10 Mg Tab) 10 mg PO DAILY [facility] Last Admin: 12/19/22 10:34 Dose: 10 mg Aspirin (Aspirin Ec 81 Mg Tab) 81 mg PO DAILY [facility] Last Admin: 12/19/22 10:34 Dose: 81 mg Benazepril HCl (Benazepril 20 Mg Tab) 20 mg PO DAILY [facility] Last Admin: 12/19/22 10:33 Dose: 20 mg Cetirizine HCl (Cetirizine Hcl 5 Mg Tablet) 10 mg PO DAILY PRN PRN Reason: ALLERGIES Last Admin: 12/18/22 09:27 Dose: 10 mg Enoxaparin Sodium (Enoxaparin 40 Mg/0.4 Ml) 40 mg SQ DAILY [facility] Last Admin: 12/19/22 10:33 Dose: 40 mg Fluticasone Propionate (Fluticasone 50mcg Nasal [place]) 1 sprays ARTEMIO DAILY PRN PRN Reason: NASAL CONGESTION Lactobacillus Acidoph/Bulgaricus (Lactobacillus/Acidophilus Tab) 1 tab PO BID [facility] Last Admin: 12/19/22 10:34 Dose: 1 tab Levothyroxine Sodium (Levothyroxine Sod 0.05 Mg Tablet) 0.05 mg PO DAILYAC [facility] Last Admin: 12/19/22 05:58 Dose: 0.05 mg Lidocaine HCl (Lidocaine 5% Oint 30 Gm Tube) 1 appl TOP BID [facility] Last Admin: 12/19/22 10:34 Dose: 1 appl Montelukast Sodium (Montelukast 10 Mg Tab) 10 mg PO DAILY [facility] Last Admin: 12/19/22 10:33 Dose: 10 mg Multivitamins/Minerals (Multivitamin Tab) 1 tab PO DAILY [facility] Last Admin: 12/19/22 10:34 Dose: 1 tab Sodium Chloride (Flush Normal Saline 10 Ml) 10 ml IV BID [facility] Last Admin: 12/19/22 09:00 Dose: 10 ml Sodium Chloride (Sodium Chloride 1 Gm Tab) 1 gm PO TIDWM [facility] Last Admin: 12/19/22 10:33 Dose: 1 gm Assessment/ Plan: Nephrology No dyspnea No chest pain Appetite improving No acute events overnight Vitals, medications, blood work and imaging reviewed in the chart. General: Oriented x3, Cooperative HEENT: Atraumatic Neck: Supple Respiratory: Clear to auscultation bilaterally Cardiovascular: No edema, Regular rate/rhythm Gastrointestinal: Soft and benign, Non-distended Musculoskeletal: No clubbing, No contractures Integumentary: No rashes, No cyanosis Neurological: Normal speech Mack Laboratory Data (last 24 hrs) 12/15/22 04:01: Sodium 127 L, Potassium 4.5, BUN 13, Creatinine 0.73, Glucose 122 H, Magnesium 2.2, Total Bilirubin 0.6, AST 27, ALT 47, Alkaline Phosphatase 74 12/15/22 04:01: WBC 7.00, Hgb 12.1, Hct 36.5, Plt Count 366 Imagings Data: EXAM DESCRIPTION: RAD - Chest Single View - 12/15/2022 4:36 am CLINICAL HISTORY: Weakness COMPARISON: None. 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 Lungs are clear without consolidation, atelectasis, mass or edema. There are small pleural effusions bilaterally. There is no pneumothorax. There are no acute osseous findings. IMPRESSION: No definite pneumonia. Conclusions/Impression: Hypovolemic Hyponatremia, resolved Euvolemic Hyponatremia suspicious for SIADH -Continue sodium tablets at this time -Caution with excess fluid intake -Consider DC mack in the AM after repeat urine studies HTN -Continue Amlodipine & Benazepril Hyperglycemia A1C 5.5 -No sugar diet RUE pain -Ortho evaluation prn Debility/ Weakness -PT as tolerated Case reviewed with Dr. Castaneda Consider removing mack soon
[2022-12-19] MEDS: DOCUSATE NA 100 MG CAP PO SCH (18:07)
[2022-12-19 23:21] VITALS: O2SAT 99
--- NOTE | 2022-12-20 03:05 | P.PN ---
Subjective Date of Service: 12/19/22 Subjective: No new changes, No C/O voiced, Improving Review of Systems 10-point ROS is otherwise unremarkable Physical Examination - Vital Signs Temperature: 96.9 F Blood Pressure: 122/58 Pulse: 64 Respirations: 18 Pulse Ox (%): 96 - Physical Exam General: Alert, In no apparent distress HEENT: Atraumatic, PERRLA, EOMI Neck: Supple, JVD not distended Respiratory: Clear to auscultation bilaterally, Normal air movement Cardiovascular: Regular rate/rhythm, Normal S1 S2 Gastrointestinal: Normal bowel sounds, No tenderness Musculoskeletal: No tenderness Integumentary: No rashes Neurological: Normal speech, Normal tone, Normal affect Lymphatics: No axilla or inguinal lymphadenopathy - Studies Medications List Reviewed: Yes Assessment & Plan - Problems (Diagnosis) (1) Elevated troponin Current Visit: No Status: Acute (2) Generalized weakness Current Visit: No Status: Acute (3) Hypertension Current Visit: No Status: Acute - Advance Directives Does patient have a Living Will: Yes Does patient have a Durable POA for Healthcare: No - Code Status/Comfort Care Code Status: Full Code
[2022-12-20] MEDS: LEVOTHYROXINE SOD 0.05 MG TABLET PO SCH (05:41)
[2022-12-20] MEDS: HYDROCODONE/APAP 5/325 MG TAB PO PRN (05:41)
[2022-12-20 06:22] LABS: Bilirubin Total 0.5 mg/dL (0.2-1.0); Potassium 4.4 mmol/L (3.5-5.1); Protein, Total 6.7 g/dL (6.4-8.2); Uric Acid 3.4 mg/dL (2.6-6.0)
[2022-12-20] MEDS: ENOXAPARIN 40 MG/0.4 ML SQ SCH (08:14)
[2022-12-20] MEDS: AMLODIPINE 10 MG TAB PO SCH (08:15)
[2022-12-20] MEDS: LACTOBACILLUS/ACIDOPHILUS TAB PO SCH (08:15)
[2022-12-20] MEDS: MONTELUKAST 10 MG TAB PO SCH (08:15)
[2022-12-20] MEDS: MULTIVITAMIN TAB PO SCH (08:15)
[2022-12-20] MEDS: LIDOCAINE 5% OINT 30 GM TUBE TOP SCH (08:15)
[2022-12-20] MEDS: SODIUM CHLORIDE 1 GM TAB PO SCH (08:15)
[2022-12-20] MEDS: BENAZEPRIL 20 MG TAB PO SCH (08:15)
[2022-12-20] MEDS: ASPIRIN EC 81 MG TAB PO SCH (08:15)
[2022-12-20] MEDS ORDERED: LACTULOSE 20 GM/30 ML UCUP PO ONE (08:16)
[2022-12-20] MEDS: DOCUSATE NA 100 MG CAP PO SCH (08:16)
[2022-12-20] MEDS ORDERED: MAGNES/ALUMIN/SIMET 30ML UCUP PO PRN (08:16)
--- NOTE | 2022-12-20 10:37 | RAD REPORT ---
EXAM DESCRIPTION: CT - Abdomen Pelvis W/Wo Contrast - 12/20/2022 8:56 am CLINICAL HISTORY: Left flank pain with intermittent gross hematuria COMPARISON: No comparisons TECHNIQUE: Biphasic, helical CT imaging of the abdomen and pelvis was performed following 100 ml non -ionic IV contrast. Pre IV contrast images were obtained. Oral contrast: No. All CT scans are performed using dose optimization technique as appropriate and may include automated exposure control or mA/KV adjustment according to patient size. FINDINGS: No suspicious findings in the lung bases. No measurable pericardial thickening or effusion . Heart size is normal. The liver and spleen show no suspicious findings. No gallbladder or biliary tree abnormality. Benign 2.0 centimeter midline left lobe liver cyst is present. In the body of the pancreas there is a 2.1 centimeter oval homogeneous cystic mass. No other solid or cystic mass of the pancreas identifiable. No dilation of the pancreatic duct. This mass is very like ly benign but can be followed as clinical findings warrant inpatient age and medical status. Precontrast imaging shows no hydronephrosis. No obstructing or nonobstructing calculi are identified. No pyelonephritis or acute parenchymal process. Patient has numerous simple cysts. In the lower pole left kidney there is an exophytic 2.2 centimeter round homogeneous hyperdense mass. In the lateral i nferior right kidney there is an 1.8 cm rounded mass showing similar homogeneous hyperdense character istics. These are both believed to be incidental high protein content cysts. In the lateral mid left kidney there is a 1.4 cm round hypodense mass (35 HU). This is probably a minimally complex cyst but can be monitored on surveillance imaging. No adrenal abnormalities. Urinary bladder is mostly contracted limiting assessment. There is a small amount of air within the l umen presumed to be from catheterization procedure. The contracted state accentuates the cummings which do appear to be enhancing with slightly shaggy margins. Cystitis is certainly a consideration. Multiple calcified uterine fibroids are present. Atrophic ovaries show no suspicious finding. No dilated bowel loops or bowel wall thickening. No acute GI process identifiable. No free air, free fluid or inflammatory stranding. No hernia, mass or bulky lymphadenopathy. No suspicious bony findings. IMPRESSION: Contracted urinary bladder showing wall thickening, enhancement and shaggy margins. Muc h of this is due to the contracted state. However, cystitis would be a consideration given the appear ance. Multiple small simple and high protein content cysts present in both kidneys. There is a 1.4 cm mass lateral mid left kidney that is probably a complex cyst but can be monitored with follow-up imaging i n 6 months. A 2.1 centimeter pancreatic cyst is present. This is likely benign but can be monitored with repeat i maging in 6 months.
[2022-12-20 12:45] VITALS: BP 134/69; TEMP 97.3
--- NOTE | 2022-12-20 20:03 | P.PN ---
Date of Service: 12/20/22 Vital Signs Temp Pulse Resp BP Pulse Ox 97.3 F 109 H 18 134/69 97 12/20/22 11:45 12/20/22 11:45 12/20/22 11:45 12/20/22 11:45 12/20/22 11:45 Assessment/ Plan: Nephrology No dyspnea No chest pain She reports left flank pain. Nurse reports intermittent hematuria. No acute events overnight. Montano removed. Vitals, medications, blood work and imaging reviewed in the chart. General: Oriented x3, Cooperative HEENT: Atraumatic Neck: Supple Respiratory: Clear to auscultation bilaterally Cardiovascular: No edema, Regular rate/rhythm Gastrointestinal: Soft and benign, Non-distended Musculoskeletal: No clubbing, No contractures Integumentary: No rashes, No cyanosis Neurological: Normal speech Laboratory Data (last 24 hrs) 12/15/22 04:01: Sodium 127 L, Potassium 4.5, BUN 13, Creatinine 0.73, Glucose 122 H, Magnesium 2.2, Total Bilirubin 0.6, AST 27, ALT 47, Alkaline Phosphatase 74 12/15/22 04:01: WBC 7.00, Hgb 12.1, Hct 36.5, Plt Count 366 Imagings Data: EXAM DESCRIPTION: RAD - Chest Single View - 12/15/2022 4:36 am CLINICAL HISTORY: Weakness COMPARISON: None. TECHNIQUE: XR CHEST 1 VIEW 12/15/2022 3:52 AM METHODOLOGIST FINDINGS: The heart is mildly enlarged. Lungs are clear without consolidation, atelectasis, mass or edema. There are small pleural effusions bilaterally. There is no pneumothorax. There are no acute osseous findings. IMPRESSION: No definite pneumonia. [facility] EXAM DESCRIPTION: CT - Abdomen Pelvis W/Wo Contrast - 12/20/2022 8:56 am CLINICAL HISTORY: Left flank pain with intermittent gross hematuria COMPARISON: No comparisons TECHNIQUE: Biphasic, helical CT imaging of the abdomen and pelvis was performed following 100 ml non-ionic IV contrast. Pre IV contrast images were obtained. Oral contrast: No. All CT scans are performed using dose optimization technique as appropriate and may include automated exposure control or mA/KV adjustment according to patient size. FINDINGS: No suspicious findings in the lung bases. No measurable pericardial thickening or effusion. Heart size is normal. The liver and spleen show no suspicious findings. No gallbladder or biliary tree abnormality. Benign 2.0 centimeter midline left lobe liver cyst is present. In the body of the pancreas there is a 2.1 centimeter oval homogeneous cystic mass. No other solid or cystic mass of the pancreas identifiable. No dilation of the pancreatic duct. This mass is very likely benign but can be followed as clinical findings warrant inpatient age and medical status. Precontrast imaging shows no hydronephrosis. No obstructing or nonobstructing calculi are identified. No pyelonephritis or acute parenchymal process. Patient has numerous simple cysts. In the lower pole left kidney there is an exophytic 2.2 centimeter round homogeneous hyperdense mass. In the lateral inferior right kidney there is an 1.8 cm rounded mass showing similar homogeneous hyperdense characteristics. These are both believed to be incidental high protein content cysts. In the lateral mid left kidney there is a 1.4 cm round hypodense mass (35 HU). This is probably a minimally complex cyst but can be monitored on surveillance imaging. No adrenal abnormalities. Urinary bladder is mostly contracted limiting assessment. There is a small amount of air within the lumen presumed to be from catheterization procedure. The contracted state accentuates the cummings which do appear to be enhancing with slightly shaggy margins. Cystitis is certainly a consideration. Multiple calcified uterine fibroids are present. Atrophic ovaries show no bemran spicious finding. No dilated bowel loops or bowel wall thickening. No acute GI process identifiable. No free air, free fluid or inflammatory stranding. No hernia, mass or bulky lymphadenopathy. No suspicious bony findings. IMPRESSION: Contracted urinary bladder showing wall thickening, enhancement and shaggy margins. Much of this is due to the contracted state. However, cystitis would be a consideration given the appearance. Multiple small simple and high protein content cysts present in both kidneys. There is a 1.4 cm mass lateral mid left kidney that is probably a complex cyst but can be monitored with follow-up imaging in 6 months. A 2.1 centimeter pancreatic cyst is present. This is likely benign but can be monitored with repeat imaging in 6 months. Conclusions/Impression: Hypovolemic Hyponatremia, resolved Euvolemic Hyponatremia suspicious for SIADH -Continue sodium tablets at this time -Caution with excess fluid intake CT Abd/ Pelvis ordered for left flank pain with intermittent gross hematuria. -CT reviewed. HTN -Continue Amlodipine & Benazepril Hyperglycemia A1C 5.5 -No sugar diet RUE pain -Ortho evaluation prn Debility/ Weakness -PT as tolerated
== END 2022-12-20 12:05 | disposition home health service (06) | DRG 641 ==
LOC: ER 03:42 → ERHOLD 06:56 → 4TH 08:35
PROVIDERS: ADMIT Internal Medicine; ATTEND Hospitalist
DX: E87.1 Hypo-osmolality and hyponatremia (principal); N02.9 Recurrent and persistent hematuria with unspecified morphologic changes; I10 Essential (primary) hypertension; E11.65 Type 2 diabetes mellitus with hyperglycemia; F32.A Depression, unspecified; J30.2 Other seasonal allergic rhinitis; E03.9 Hypothyroidism, unspecified; M17.11 Unilateral primary osteoarthritis, right knee; S46.211A Strain of muscle, fascia and tendon of other parts of biceps, right arm, initial encounter; I25.2 Old myocardial infarction; R77.8 Other specified abnormalities of plasma proteins; Z79.82 Long term (current) use of aspirin; Z79.899 Other long term (current) drug therapy; Z79.890 Hormone replacement therapy; Z20.822 Contact with and (suspected) exposure to COVID-19
CPT/HCPCS: 36415; 51702; 71045; 74178; 80048; 80053; 81001; 81003; 81015; 82435; 82550; 82570; 83036; 83735; 83930; 83935; 84100; 84132; 84300; 84443; 84484; 84550; 85025; 87811; 93005; 96360; 96361; 97110; 97112; 97116; 97161; 97165; 97530; 99285; J1650; J7030; Q9967